=== PATIENT | male | born 1980 | race Caucasian/White ===

== ENCOUNTER 2017-08-21 04:55 | Emergency (ER) | payer OTHER ==
--- NOTE | 2017-08-21 05:33 | ED ---
Abdominal Pain HPI - General Chief Complaint: Abdominal Pain Stated Complaint: ABD PAIN Time Seen by Provider: 08/21/17 05:10 Source: patient Mode of arrival: ambulatory Limitations: no limitations - History of Present Illness Initial Comments: This patient is a 37-year-old man who presents to be evaluated for lower abdominal pain and diarrhea. He states that he was initially having symptoms 2 weeks ago, they seem to improve somewhat and then they have recurred over the past 2 days or so. He also was having some upper respiratory symptoms but states that these are not as severe area he indicates the pain is in the bilateral lower quadrants and seems to spread to the low back on the right. He had 3 bowel movements over the course of tonight. She has not noticed any blood. He is not having vomiting. He has not had a recent course of antibiotics. At my initial history and physical exam he is declining analgesics. MD Complaint: abdominal pain -: week(s) Location: LLQ, RLQ Radiation: R flank Migration to: no migration Severity: moderate Quality: aching Consistency: constant Improves With: nothing Worsens With: nothing Associated Symptoms: diarrhea - Related Data Home Medications Medication Instructions Recorded Confirmed Pioglitazone [Actos] 1 PO DAILY 08/21/17 Previous Rx's Medication Instructions Recorded Dicyclomine [Bentyl] 20 mg PO QID #15 tablet 08/21/17 Allergies Allergy/AdvReac Type Severity Reaction Status Date / Time metformin AdvReac Abdominal Verified 08/21/17 05:01 Pain Review of Systems ROS Statement: Those systems with pertinent positive or pertinent negative responses have been documented in the HPI. ROS Other: All systems not noted in ROS Statement are negative. Constitutional: Denies: fever, chills Respiratory: Denies: cough, dyspnea Cardiovascular: Denies: chest pain, palpitations Gastrointestinal: Reports: abdominal pain, diarrhea. Denies: nausea, vomiting, constipation, melena, hematochezia Genitourinary: Denies: dysuria, hematuria, testicular pain, testicular mass Musculoskeletal: Denies: back pain Skin: Denies: rash Neurological: Denies: headache, weakness, numbness Past Medical History Past Medical History: Diabetes Mellitus, Hyperlipidemia, Hypertension Additional Past Medical History / Comment(s): heart murmur History of Any Multi-Drug Resistant Organisms: None Reported Additional Past Surgical History / Comment(s): lump removed from neck Past Psychological History: No Psychological Hx Reported Smoking Status: Never smoker Past Alcohol Use History: Rare Past Drug Use History: None Reported General Exam Limitations: no limitations General appearance: alert, in no apparent distress Head exam: Present: atraumatic, normocephalic Eye exam: Present: normal appearance. Absent: scleral icterus, conjunctival injection ENT exam: Present: normal oropharynx Respiratory exam: Present: normal lung sounds bilaterally. Absent: respiratory distress, wheezes, rales, rhonchi, stridor Cardiovascular Exam: Present: regular rate, normal rhythm, normal heart sounds. Absent: systolic murmur, diastolic murmur, rubs, gallop GI/Abdominal exam: Present: soft, normal bowel sounds. Absent: distended, tenderness, guarding, rebound, rigid, pulsatile mass, hernia Extremities exam: Present: normal inspection, normal capillary refill. Absent: pedal edema, calf tenderness Back exam: Present: normal inspection. Absent: CVA tenderness (R), CVA tenderness (L) Neurological exam: Present: alert Skin exam: Present: warm, dry, intact, normal color. Absent: rash Course Vital Signs 08/21/17 08/21/17 04:58 06:01 Temperature 97 F L Pulse Rate 81 Respiratory 16 95 H Rate Blood Pressure 160/91 168/92 O2 Sat by Pulse 99 96 Oximetry Medical Decision Making - Lab Data Result diagrams: 08/21/17 05:22 08/21/17 05:22 Lab Results 08/21/17 08/21/17 08/21/17 Range/Units 05:22 05:22 05:22 WBC 9.5 (3.8-10.6) k/uL RBC 5.78 (4.30-5.90) m/uL Hgb 16.6 (13.0-17.5) gm/dL Hct 47.1 (39.0-53.0) % MCV 81.5 (80.0-100.0) fL MCH 28.7 (25.0-35.0) pg MCHC 35.2 (31.0-37.0) g/dL RDW 13.2 (11.5-15.5) % Plt Count 293 (150-450) k/uL Neutrophils % 67 % Lymphocytes % 23 % Monocytes % 6 % Eosinophils % 2 % Basophils % 1 % Neutrophils # 6.3 (1.3-7.7) k/uL Lymphocytes # 2.2 (1.0-4.8) k/uL Monocytes # 0.5 (0-1.0) k/uL Eosinophils # 0.2 (0-0.7) k/uL Basophils # 0.1 (0-0.2) k/uL Sodium 142 (137-145) mmol/L Potassium 4.4 (3.5-5.1) mmol/L Chloride 101 (98-107) mmol/L Carbon Dioxide 22 (22-30) mmol/L Anion Gap 19 mmol/L BUN 14 (9-20) mg/dL Creatinine 0.70 (0.66-1.25) mg/dL Est GFR (CKD-EPI)AfAm >90 (>60 ml/min/1.73 sqM) Est GFR (CKD-EPI)NonAf >90 (>60 ml/min/1.73 sqM) Glucose 127 H (74-99) mg/dL Calcium 10.7 H (8.4-10.2) mg/dL Total Bilirubin 0.5 (0.2-1.3) mg/dL AST 39 (17-59) U/L ALT 63 (21-72) U/L Alkaline Phosphatase 66 (38-126) U/L Total Protein 8.4 H (6.3-8.2) g/dL Albumin 5.0 (3.5-5.0) g/dL Amylase 61 (30-110) U/L Lipase 239 (23-300) U/L Urine Color Yellow Urine Appearance Clear (Clear) Urine pH 5.5 (5.0-8.0) Ur Specific [place] 1.039 H (1.001-1.035) Urine Protein 1+ H (Negative) Urine Glucose (UA) 4+ H (Negative) Urine Ketones Trace H (Negative) Urine Blood Negative (Negative) Urine Nitrite Negative (Negative) Urine Bilirubin Negative (Negative) Urine Urobilinogen <2.0 (<2.0) mg/dL Ur Leukocyte Esterase Negative (Negative) Urine RBC 1 (0-5) /hpf Urine WBC 1 (0-5) /hpf Urine Mucus Rare H (None) /hpf Disposition Clinical Impression: Diarrhea, Abdominal pain Disposition: HOME SELF-CARE Condition: Good Instructions: Abdominal Pain (ED), Acute Diarrhea (ED) Prescriptions: Dicyclomine [Bentyl] 20 mg PO QID #15 tablet Referrals: Dejan De La Fuente MD [Primary Care Provider] - 1-2 days
[2017-08-21 05:35] LABS: Basophils # (A) 0.1 k/uL (0-0.2); Basophils % (A) 1 %; Eosinophils # (A) 0.2 k/uL (0-0.7); Eosinophils % (A) 2 %; HCT 47.1 % (39.0-53.0); HGB 16.6 gm/dL (13.0-17.5); Lymphocytes # (A) 2.2 k/uL (1.0-4.8); Lymphocytes % (A) 23 %; MCH 28.7 pg (25.0-35.0); MCHC 35.2 g/dL (31.0-37.0); MCV 81.5 fL (80.0-100.0); Monocytes # (A) 0.5 k/uL (0-1.0); Monocytes % (A) 6 %; Neutrophils # (A) 6.3 k/uL (1.3-7.7); Neutrophils % (A) 67 %; Platelet Count 293 k/uL (150-450); RBC 5.78 m/uL (4.30-5.90); RDW 13.2 % (11.5-15.5); WBC 9.5 k/uL (3.8-10.6)
[2017-08-21 05:36] LABS: Appearance,Urine Clear (Clear); Bilirubin,Urine Negative (Negative); Blood,Urine Negative (Negative); Color,Urine Yellow; Glucose,Urine (UA) 4+ (Negative); Ketones,Urine Trace (Negative); Leukocyte Esterase,Urine Negative (Negative); Mucus,Urine Rare /hpf; Nitrite,Urine Negative (Negative); PH, Urine 5.5 (5.0-8.0); Protein,Urine 1+ (Negative); RBC,Urine 1 /hpf (0-5); Specific Gravity,Urine 1.039 (1.001-1.035); Urobilinogen,Urine <2.0 mg/dL (<2.0); WBC,Urine 1 /hpf (0-5)
[2017-08-21 05:44] LABS: ALT 63 U/L (21-72); AST 39 U/L (17-59); Alkaline Phosphatase 66 U/L (38-126); Amylase 61 U/L (30-110); Anion Gap 19 mmol/L; Blood Urea Nitrogen 14 mg/dL (9-20); Calcium 10.7 mg/dL (8.4-10.2); Carbon Dioxide 22 mmol/L (22-30); Chloride 101 mmol/L (98-107); Glucose 127 mg/dL (74-99); Lipase 239 U/L (23-300); Potassium 4.4 mmol/L (3.5-5.1); Sodium 142 mmol/L (137-145); Total Bilirubin 0.5 mg/dL (0.2-1.3); Total Protein 8.4 g/dL (6.3-8.2)
[2017-08-21] MEDS ORDERED: MORPHINE SULF 5MG/10ML VL IV STA (06:27)
--- NOTE | 2017-08-21 07:16 | CT ---
EXAM: CT Abdomen and Pelvis Without Intravenous Contrast CLINICAL HISTORY: ITS.REASON CT Reason: Pain TECHNIQUE: Axial computed tomography images of the abdomen and pelvis without intravenous contrast. CTDI is 9.9 mGy and DLP is 554.4 mGy-cm. This CT exam was performed using one or more of the following dose reduction techniques: automated exposure control, adjustment of the mA and/or kV according to patient size, and/or use of iterative reconstruction technique. COMPARISON: None. FINDINGS: Lower thorax: No acute findings. ABDOMEN: Liver: 12 mm cyst in the dome of liver. 3 mm hypoattenuating lesion in the liver near the falciform ligament is too small to characterize but favored to represent a cyst. Gallbladder and bile ducts: Unremarkable. No calcified stones. No ductal dilation. Pancreas: Unremarkable. No ductal dilation. Spleen: Unremarkable. No splenomegaly. Adrenals: Unremarkable. No mass. Kidneys and ureters: 1 mm nonobstructing left renal calculus. Stomach and bowel: Very mild diverticulosis without evidence of diverticulitis. No obstruction. Appendix: No findings to suggest acute appendicitis. PELVIS: Bladder: Unremarkable. No stones. Reproductive: Unremarkable as visualized. ABDOMEN and PELVIS: Intraperitoneal space: Unremarkable. No free air. No significant fluid collection. Bones/joints: 6 mm presumed bone island in the right femoral head. Soft tissues: Unremarkable. Vasculature: Unremarkable. No abdominal aortic aneurysm. Lymph nodes: Unremarkable. No enlarged lymph nodes. IMPRESSION: 1 mm nonobstructing left renal calculus. No hydronephrosis. Very mild diverticulosis without evidence of diverticulitis.
[2017-08-21 07:39] VITALS: BP 131/69; PULSE 83; RESP 18; TEMP 97.5
== END 2017-08-21 07:51 | disposition home or self-care (01) ==
LOC: EC 04:55
DX: R10.31 Right lower quadrant pain (principal); R10.32 Left lower quadrant pain; R19.7 Diarrhea, unspecified; E11.9 Type 2 diabetes mellitus without complications; Z88.8 Allergy status to other drugs, medicaments and biological substances; Z79.84 Long term (current) use of oral hypoglycemic drugs
CPT/HCPCS: 99284; 96374; 36415; 80053; 82150; 83690; 85025; 81001; 74176; J2270

== ENCOUNTER → 2017-08-31 | Outpatient (CLI) | payer OTHER ==
[~2017-08-31] MED LIST: REGADENOSON 0.4 MG/5 ML SYRINGE IV ONE
--- NOTE | 2017-08-31 11:04 | NM ---
EXAMINATION TYPE: NM stress lexiscan cardiolite DATE OF EXAM: 08/31/2017 COMPARISON: NONE HISTORY: Abnormal EKG TECHNIQUE: After the intravenous administration of 10.32 mCi Tc 99m Sestamibi - Cardiolite resting S PECT images acquired 45 minutes post injection. The patient received 0.4mg Lexiscan, 26.8 mCi Tc 99m Sestamibi - Stress images obtained [address] injection FINDINGS: Review of stress and rest SPECT images demonstrates no distinct perfusion abnormality. Gated analysi s shows normal wall motion with an estimated left ventricular ejection fraction of 66 %. IMPRESSION: No scintigraphic evidence for reversible ischemia.
--- NOTE | 2017-08-31 12:04 | EST ---
EXERCISE STRESS AGE: 37 SEX: M HT: 63" WT: 183 PROTOCOL: Lexiscan Cardiolite Stress Test HEART RATE REST: 81 BLOOD PRESSURE REST: 137/90 MAXIMUM HEART RATE ACHIEVED: 112. MAXIMUM BLOOD PRESSURE: 165/66 85% MPHR: 155 100% MPHR: 182 INDICATIONS: Difficulty in breathing/shortness of breath CLINICAL INFORMATION: Baseline heart rate 81 beats per minute. Baseline blood pressure is 137/90 mmHg. Baseline 12-lead ECG shows sinus rhythm with normal cardiac intervals, normal ST segments. Patient received Lexiscan infusion per protocol. Heart rate and blood pressure remained normal. There was no ECG evidence for ischemia. No arrhythmias were noted. Nuclear portion of the stress test will be reported separately. MMODL / IJN: [id number] /
== END | disposition home or self-care (01) ==
LOC: RADNMMAIN 07:56
PROVIDERS: ATTEND Family Medicine
DX: R94.31 Abnormal electrocardiogram [ECG] [EKG] (principal)
CPT/HCPCS: 93017; 78452; A9500; J2785

== ENCOUNTER → 2017-12-20 | Outpatient (CLI) | payer OTHER ==
--- NOTE | 2017-12-21 12:09 | MR ---
EXAMINATION TYPE: MR shoulder LT wo con DATE OF EXAM: 12/20/2017 COMPARISON: HISTORY: Left Shoulder Pian with Limited ROM X1 year TECHNIQUE: Multiplanar, multisequence imaging of the shoulder is performed without contrast. FINDINGS: Rotator Cuff: There is moderate supraspinatus tendinosis with bursal surface fiber fraying. No discre te tear is identified. Infraspinatus is unremarkable other than very mild increased signal in its ins ertional fibers from mild insertional fiber tendinopathy. Teres minor is of normal muscle volume and signal. There is a 3 x 4 mm intrasubstance tear of the distal tendon of the subscapularis. Acromioclavicular Joint: There is mild acromioclavicular arthropathy with capsular hypertrophy, small marginal osteophytes and joint space narrowing. Glenohumeral Joint: Joint spaces preserved. Labrum: The labrum appears grossly intact given limitation of non-arthrogram study. Biceps Tendon: The long head of biceps is in normal location within bicipital groove. However there i s slight attenuation of the biceps tendon in its intra-articular portion just proximal to its inserti on on the biceps anchor. Bone marrow signal: No focal abnormal marrow signal is appreciated. Other: There is a small amount of fluid seen within the subdeltoid/subacromial bursa and may relate t o bursitis in the appropriate clinical setting. IMPRESSION: 1. Moderate supraspinatus tendinosis with bursal surface fiber fraying. Additionally there is subacro mial/subdeltoid fluid that may relate to bursitis in the appropriate clinical setting. 2. 3 x 4 mm distal tendon intrasubstance tear of the subscapularis. 3. Mild insertional tendinopathy of the infraspinatus without tear. 4. Minimal biceps tendinopathy in the intra-articular portion. 5. Mild acromio clavicular arthropathy. No evidence of internal impingement.
== END | disposition home or self-care (01) ==
LOC: RADMRIMAIN 15:04
PROVIDERS: ATTEND Physician Assistant
DX: S46.912A Strain of unspecified muscle, fascia and tendon at shoulder and upper arm level, left arm, initial encounter (principal); M19.012 Primary osteoarthritis, left shoulder; M67.814 Other specified disorders of tendon, left shoulder

== ENCOUNTER → 2018-02-22 | Outpatient (CLI) | payer OTHER ==
[2018-02-22 11:44] LABS: Basophils % (A) 0 %; Eosinophils # (A) 0.1 k/uL (0-0.7); Eosinophils % (A) 3 %; HCT 45.3 % (39.0-53.0); HGB 15.8 gm/dL (13.0-17.5); Lymphocytes # (A) 1.6 k/uL (1.0-4.8); Lymphocytes % (A) 33 %; MCH 29.1 pg (25.0-35.0); MCHC 34.9 g/dL (31.0-37.0); MCV 83.3 fL (80.0-100.0); Mean Platelet Volume 6.8; Monocytes # (A) 0.4 k/uL (0-1.0); Monocytes % (A) 8 %; Neutrophils # (A) 2.6 k/uL (1.3-7.7); Neutrophils % (A) 54 %; Platelet Count 252 k/uL (150-450); RBC 5.44 m/uL (4.30-5.90); RDW 13.1 % (11.5-15.5); WBC 4.8 k/uL (3.8-10.6)
[2018-02-22 11:46] LABS: INR 1.1 (<1.2); Prothrombin Time 10.8 sec (9.0-12.0)
[2018-02-22 12:03] LABS: Potassium 4.4 mmol/L (3.5-5.1)
== END | disposition home or self-care (01) ==
LOC: LABWHC1 10:33
PROVIDERS: ATTEND Orthopaedic Surgery
DX: Z01.812 Encounter for preprocedural laboratory examination (principal); M75.42 Impingement syndrome of left shoulder
CPT/HCPCS: 80051; 85025; 85610

== ENCOUNTER → 2018-03-12 | Day surgery (SDC) | payer OTHER ==
[2018-03-07 11:31] VITALS: BMI 34.2
--- NOTE | 2018-03-11 10:25 | HP ---
HISTORY AND PHYSICAL CHIEF COMPLAINT: Left shoulder pain. 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 He is having pain with overhead use and at night. He has tried medications, therapy, and an injection with only minimal relief. He notes the pain significantly limits his function and activities. PAST MEDICAL HISTORY: Significant for type 2 diabetes and hypertension. CURRENT MEDICATIONS: 1. Diclofenac. 2. Atorvastatin. 3. Lisinopril. ALLERGIES: He notes allergies to METFORMIN. SURGICAL HISTORY: Negative. FAMILY HISTORY: Significant for liver disease and diabetes. SOCIAL HISTORY: Negative for current tobacco or alcohol use. REVIEW OF SYSTEMS: Sixteen-point review of systems otherwise reviewed and is noncontributory. PHYSICAL EXAMINATION: On examination, the patient is approximately 5 feet, 3 inches, 191 pounds of mesomorphic habitus. HEENT exam is nonfocal. Neck is supple. On examination of his left shoulder, he is tender about the anterior subacromial space. He has moderate subacromial crepitus. Active range of motion forward elevation 145 degrees, external rotation with arm to side 55 degrees, internal rotation to T12. Motor strength is 5 minus out of 5 for external rotation with the arm at the side, 5/5 for abduction. Impingement test, Neer test, and Speed test are positive. His distal neurovascular exam otherwise appears intact in the left upper extremity. MRI report for the left shoulder shows evidence of supraspinatus tendinosis with possible partial-thickness tear. There is also some biceps tendinopathy. IMPRESSION: 1. Left shoulder impingement with possible partial-thickness rotator cuff tear. 2. Uzb-[id number] diabetes. 3. Possible adhesive capsulitis left shoulder. RECOMMENDATIONS: I talked to the patient at length regarding his condition and treatment options. At this point, he remains quite symptomatic despite extensive conservative measures. After a thorough discussion, he opts to proceed with surgery. We will plan to proceed with arthroscopic evaluation with possible subacromial decompression, rotator cuff debridement, and possible manipulation under anesthesia. We will likely perform that as an outpatient procedure. MMODL / IJN: [id number] /
[~2018-03-12] MED LIST changes: +HYDROcodone/APAP 7.5-325MG 1 EACH TAB PO ONE; +HYDROmorphone (PF) 1 MG/ML ONE; +HYDROmorphone 0.5 MG/0.5 ML SYRINGE IVP PRN; +HYDROmorphone 1 MG/ML 1 ML SYRINGE IVP ONE; +INSULIN ASPART 100 UNIT/ML 1 ML 10 ML VIAL SQ ONE; +LACTATED RINGERS 1,000 ML IV ONE; +LACTATED RINGERS 1,000 ML IV SCH; +LIDOCAINE 1% INJ 10MG/ML (20 ML MDV) ONE; +MIDAZOLAM 2 MG/2 ML VIAL IV ONE; +MIDAZOLAM 2 MG/2 ML VIAL ONE; +PHENYLEPHRINE-0.9% NACL SYG 1 MG/10 ML SYRINGE ONE; +PROPOFOL 10 MG/ML 20 ML VIAL IV ONE; -REGADENOSON 0.4 MG/5 ML SYRINGE IV ONE; +ROPIVACAINE 5 MG/ML 30 ML VIAL ONE; +SUCCINYLCHOLINE CHLORIDE 100 MG/5 ML SYR IV ONE; +ceFAZolin IN SWFI 2 GM/20 ML SYRINGE IVP ONE; +fentaNYL (PF) 50 MCG/ML 2 ML AMP ONE
[2018-03-12 06:55] LABS: Glucose,Whole Blood 233 mg/dL (75-99)
[2018-03-12 07:49] LABS: Glucose,Whole Blood 206 mg/dL (75-99)
[2018-03-12 09:10] VITALS: TEMP 97.5
--- NOTE | 2018-03-12 09:18 | P.OP ---
Date of Procedure: 03/12/18 Preoperative Diagnosis: Left shoulder impingement/rotator cuff tendinitis/adhesive capsulitis Postoperative Diagnosis: Same in addition to partial thickness bursal surface rotator cuff tear Procedure(s) Performed: Left shoulder arthroscopic subacromial decompression/rotator cuff debridement/ partial synovectomy Anesthesia: FARHAN, [facility] Surgeon: Vipul Blankenship Estimated Blood Loss (ml): 10 Pathology: none sent Condition: stable Disposition: PACU Indications for Procedure: The patient is a 37-year-old male who presents with persistent left shoulder pain despite conservative measures. A discussion of the risks and benefits of operative intervention versus continued conservative measures was made with patient. He opted to proceed with surgery. Operative risks to include infection, neurovascular injury, development of blood clots, possible incomplete resolution of symptoms, possible worsening symptoms and need for subsequent procedures was discussed. Informed consent was obtained. Operative Findings: As below Description of Procedure: The patient was brought to the operating room, and after induction of general anesthesia was placed in a beachchair position. A preoperative interscalene block was placed by anesthesia for postoperative analgesia. Bony prominences were appropriately padded. I examined the left shoulder. There was mild block to passive motion and gentle manipulation was performed. The left upper extremity was prepped and draped in normal fashion. The bony outlines the acromion, distal clavicle, and coracoid process were outlined with a skin marker. The glenohumeral joint was inflated with 50 mL of saline utilizing a spinal needle from posterior approach. A posterior portal was made through a 5 mm skin incision 1 cm medial and inferior to the posterior lateral border of the acromion. A blunt trocar was used to easily into the joint. Diagnostic arthroscopy was performed. An anterior portals made just lateral to the coracoid process entering the joint above the subscapularis tendon. The subscapularis was intact. Anterior labrum was intact. There was significant synovitis involving the rotator interval debrided with motorized shaver. The biceps anchor was intact. No significant damage the biceps was noted. The posterior labrum was intact. There was no significant degenerative changes involving the humeral head or glenoid. The rotator cuff was intact on the articular surface. The arthroscope was then placed into the subacromial space. A lateral portal was made through a 5 mm skin incision 2 cm inferior to the anterior lateral border of the acromion. The soft tissue on the undersurface of the acromion was debrided with a motorized shaver and electrocautery clearly defining the anterior medial and lateral borders as well as the distal clavicle. The coracoacromial ligament was detached from the anterior acromion with electrocautery. An anterior inferior acromioplasty is performed with a motorized adria starting anterolateral, then extending this posteriorly, then extending this medially. I was able to convert to a flat acromion. This was verified from the posterior and lateral viewing portals. Significant bursitis was present in the subacromial space. This was debrided with motorized shaver. The rotator cuff was inspected. There was a partial thickness tear involving the anterior aspect the supraspinatus involving approximately 2-3 mm the tendon thickness. This was debrided back to stable base. The remaining rotator cuff was stable and intact. The arthroscope was then removed. The portals were closed with simple 3-0 nylon suture. A sterile dressing was applied in addition to a sling. The patient was awoken from general anesthesia and transferred to recovery room in good condition. Blood loss was estimated at 10 mL. No complications were incurred.
[2018-03-12 09:52] LABS: Glucose,Whole Blood 210 mg/dL (75-99)
[2018-03-12 11:28] VITALS: PULSE 89; RESP 18
[2018-03-12 11:41] VITALS: BP 128/75
--- NOTE | 2018-03-13 09:11 | P.ONQ ---
Anesthesiology Proc Note - PNB - Peripheral Nerve Block Performed Left Interscalene Single Time Out Performed: Yes Procedure Start Time: 07:14 Procedure Stop Time: 07:17 Indication: Acute Post-Operative Pain, Requested by physician Sedation Type: Sedate with meaningful contact maintained Preparation: Sterile Prep Position: Supine Needle Size: 50mm (2") Needle Gauge: 21 Technique: Ultrasound Injectate: 0.5% Ropivacaine (see comment for volume) (ropi .5% 30cc) Blood Aspirated: No Pain Paresthesia on Injection Noted: No Resistance on Injection: Normal Events: Uneventful and Well Tolerated
== END | disposition home or self-care (01) ==
LOC: OR 06:12
PROVIDERS: ATTEND Orthopaedic Surgery
DX: S46.012A Strain of muscle(s) and tendon(s) of the rotator cuff of left shoulder, initial encounter (principal); X58.XXXA Exposure to other specified factors, initial encounter; M75.02 Adhesive capsulitis of left shoulder; M75.52 Bursitis of left shoulder; I10 Essential (primary) hypertension; E78.5 Hyperlipidemia, unspecified; E11.9 Type 2 diabetes mellitus without complications; Z79.4 Long term (current) use of insulin; Z79.899 Other long term (current) drug therapy; Z88.8 Allergy status to other drugs, medicaments and biological substances
CPT/HCPCS: 64415; 29823; J2250; J2001; J3010; J1170; J2795; J2370; J0330; J2704; J0690

== ENCOUNTER 2019-01-14 07:12 | Day surgery (SDC) | payer OTHER ==
[2019-01-09 15:22] VITALS: BMI 36.3
[~2019-01-14 07:12] MED LIST changes: -HYDROcodone/APAP 7.5-325MG 1 EACH TAB PO ONE; -HYDROmorphone (PF) 1 MG/ML ONE; -HYDROmorphone 0.5 MG/0.5 ML SYRINGE IVP PRN; -HYDROmorphone 1 MG/ML 1 ML SYRINGE IVP ONE; -INSULIN ASPART 100 UNIT/ML 1 ML 10 ML VIAL SQ ONE; -LACTATED RINGERS 1,000 ML IV ONE; -LIDOCAINE 1% INJ 10MG/ML (20 ML MDV) ONE; -MIDAZOLAM 2 MG/2 ML VIAL IV ONE; -MIDAZOLAM 2 MG/2 ML VIAL ONE; -PHENYLEPHRINE-0.9% NACL SYG 1 MG/10 ML SYRINGE ONE; -PROPOFOL 10 MG/ML 20 ML VIAL IV ONE; -ROPIVACAINE 5 MG/ML 30 ML VIAL ONE; -SUCCINYLCHOLINE CHLORIDE 100 MG/5 ML SYR IV ONE; -ceFAZolin IN SWFI 2 GM/20 ML SYRINGE IVP ONE; -fentaNYL (PF) 50 MCG/ML 2 ML AMP ONE
[2019-01-14] MEDS ORDERED: LIDOCAINE 1% 20 ML VIAL (10MG/ML) FOR IV START INTRADERMA ONE (07:40)
[2019-01-14] MEDS ORDERED: MIDAZOLAM 2 MG/2 ML VIAL ONE (07:45)
[2019-01-14] MEDS ORDERED: KETAMINE 10 MG/ML 20 ML VIAL ONE (07:45)
[2019-01-14] MEDS ORDERED: PROPOFOL 10 MG/ML 20 ML VIAL IV ONE (07:45)
[2019-01-14 07:47] LABS: Glucose,Whole Blood 97 mg/dL (75-99)
[2019-01-14 07:48] VITALS: TEMP 97.8
--- NOTE | 2019-01-14 07:55 | P.GSHP ---
History of Present Illness H&P Date: 01/14/19 Chief Complaint: GERD This is a 38-year-old male second with GERD. Patient presents today for EGD. Past Medical History Past Medical History: Diabetes Mellitus, GERD/Reflux, Hyperlipidemia, Hypertension Additional Past Medical History / Comment(s): Hx heart murmur History of Any Multi-Drug Resistant Organisms: None Reported Past Surgical History: Orthopedic Surgery Additional Past Surgical History / Comment(s): Lump removed from neck. Lt shoulder Past Anesthesia/Blood Transfusion Reactions: No Reported Reaction Smoking Status: Never smoker - Past Family History Mother Family Medical History: Cancer Medications and Allergies Home Medications Medication Instructions Recorded Confirmed Type Atorvastatin [Lipitor] 80 mg PO HS 03/07/18 01/09/19 History Lisinopril [Zestril] 40 mg PO QAM 03/07/18 01/09/19 History Pioglitazone [Actos] 30 mg PO DAILY 03/07/18 01/09/19 History Canagliflozin [Invokana] 300 mg PO AC-BRKFST 01/09/19 01/09/19 History Chlorthalidone [Hygroten] 50 mg PO DAILY 01/09/19 01/09/19 History Fenofibrate Nanocrystallized 145 mg PO PC-SUPPER 01/09/19 01/09/19 History [Fenofibrate] Insulin Regular, Human [humulin R 50 unit SQ AC-SUPPER 01/09/19 01/09/19 History U-500 Kwikpen] Insulin Regular, Human [humulin R 75 unit SQ -BRKFST 01/09/19 01/09/19 History U-500 Kwikpen] Omeprazole [PriLOSEC] 20 mg PO HS 01/09/19 01/09/19 History Allergies Allergy/AdvReac Type Severity Reaction Status Date / Time metformin AdvReac Abdominal Verified 01/14/19 07:26 Pain/diarrhea Surgical - Exam Vital Signs Temp Pulse Resp BP Pulse Ox 97.8 F 89 16 139/73 98 01/14/19 07:40 01/14/19 07:40 01/14/19 07:40 01/14/19 07:40 01/14/19 07:40 - General well developed, well nourished, no distress - Eyes PERRL - ENT normal pinna - Neck no masses - Respiratory normal expansion - Cardiovascular Rhythm: regular - Abdomen Abdomen: soft, non tender Assessment and Plan Assessment: GERD. We'll perform EGD.
--- NOTE | 2019-01-14 08:08 | P.OP ---
Date of Procedure: 01/14/19 Preoperative Diagnosis: GERD Postoperative Diagnosis: Antral gastritis Sliding hiatal hernia Esophagitis Procedure(s) Performed: EGD Anesthesia: MAC Surgeon: Charlie Blount Pathology: other (Antrum, esophagus) Condition: stable Disposition: PACU Description of Procedure: Patient's placed on the endoscopy table in the lateral position. He received IV sedation. The gastroscope placed oropharynx and then placed in the esophagus and then into the stomach. Scope was then placed through the pylorus. The first and second portion of the duodenum appeared normal. Scope was then brought back the antrum and this appeared mildly inflamed. A biopsies performed. The scope was unretroflexed and remainder of the stomach appeared normal. The patient had a moderate size sliding hiatal hernia. The stomach and be seen refluxing up into the esophagus. The GE junction was at 38 7 is. The distal esophagus appeared inflamed a biopsies performed. The proximal esophagus appeared normal. Scope was withdrawn for patient.
[2019-01-14 08:18] LABS: Glucose,Whole Blood 104 mg/dL (75-99)
[2019-01-14 08:37] VITALS: BP 118/65; PULSE 76; RESP 16
== END 2019-01-14 09:03 | disposition home or self-care (01) ==
LOC: ORWHC2ENDO 07:12
PROVIDERS: ATTEND Surgery
DX: K21.0 Gastro-esophageal reflux disease with esophagitis (principal); K29.50 Unspecified chronic gastritis without bleeding; E11.9 Type 2 diabetes mellitus without complications; E78.5 Hyperlipidemia, unspecified; I10 Essential (primary) hypertension; K44.9 Diaphragmatic hernia without obstruction or gangrene; Z79.4 Long term (current) use of insulin; Z79.899 Other long term (current) drug therapy; Z88.8 Allergy status to other drugs, medicaments and biological substances
CPT/HCPCS: 88305; 43239; J2250; J2704

== ENCOUNTER → 2019-01-27 | Outpatient (CLI) | payer OTHER ==
[2019-01-27 08:55] LABS: Basophils # (A) 0.1 k/uL (0-0.2); Basophils % (A) 1 %; Eosinophils # (A) 0.2 k/uL (0-0.7); Eosinophils % (A) 3 %; HCT 40.2 % (39.0-53.0); HGB 13.7 gm/dL (13.0-17.5); Lymphocytes # (A) 1.9 k/uL (1.0-4.8); Lymphocytes % (A) 28 %; MCH 28.1 pg (25.0-35.0); MCHC 34.1 g/dL (31.0-37.0); MCV 82.3 fL (80.0-100.0); Mean Platelet Volume 7.2; Monocytes # (A) 0.5 k/uL (0-1.0); Monocytes % (A) 7 %; Neutrophils % (A) 58 %; Platelet Count 333 k/uL (150-450); RBC 4.89 m/uL (4.30-5.90); RDW 13.5 % (11.5-15.5); WBC 6.8 k/uL (3.8-10.6)
== END | disposition home or self-care (01) ==
LOC: LABPAT 08:06
PROVIDERS: ATTEND Surgery
DX: Z01.812 Encounter for preprocedural laboratory examination (principal); K21.0 Gastro-esophageal reflux disease with esophagitis
CPT/HCPCS: 36415; 85025

== ENCOUNTER → 2019-01-31 | Outpatient (CLI) | payer OTHER ==
[2019-01-31 11:12] LABS: Potassium 4.1 mmol/L (3.5-5.1)
== END | disposition home or self-care (01) ==
LOC: LABPAT 09:26
PROVIDERS: ATTEND Surgery
DX: Z01.818 Encounter for other preprocedural examination (principal); R13.10 Dysphagia, unspecified; K21.0 Gastro-esophageal reflux disease with esophagitis; Z01.812 Encounter for preprocedural laboratory examination
CPT/HCPCS: 36415; 82565; 84132; 84520; 93005

== ENCOUNTER 2019-02-05 13:13 | Day surgery (SDC) | payer OTHER ==
[~2019-02-05 13:13] MED LIST changes: +DEXAMETHASONE SOD PHOSPHATE 10 MG/ML 1 ML VIAL IV ONE; +HEPARIN SODIUM,PORCINE 5,000 UNIT/ML 1 ML VIAL SQ ONE; -LACTATED RINGERS 1,000 ML IV SCH; +ONDANSETRON 4 MG/2 ML VIAL IVP ONE; +ONDANSETRON 4 MG/2 ML VIAL IVP PRN
[2019-02-05] MEDS ORDERED: LIDOCAINE 1% 20 ML VIAL (10MG/ML) FOR IV START INTRADERMA ONE (14:07)
[2019-02-05] MEDS: LACTATED RINGERS 1,000 ML IV SCH (14:07)
--- NOTE | 2019-02-05 14:22 | P.GSHP ---
History of Present Illness H&P Date: 02/05/19 Chief Complaint: GERD This is a 38-year-old male referred from Dr. Dejan Blandon. The patient has had long-standing problems with reflux esophagitis. The patient underwent recent EGD is found have evidence of esophagitis. Patient has been well informed on the procedure of laparoscopic Ricky fundoplication. The patient is aware the risk of the conversion to the open procedure, risk of injury to the stomach, liver and spleen. The patient is also a risk of recurrent GERD and dysphagia symptoms. The patient understands there is a postoperative diet of full liquids for 2 weeks after surgery. Past Medical History Past Medical History: Diabetes Mellitus, GERD/Reflux, Hyperlipidemia, Hypertension Additional Past Medical History / Comment(s): Hx heart murmur History of Any Multi-Drug Resistant Organisms: None Reported Past Surgical History: Orthopedic Surgery Additional Past Surgical History / Comment(s): Lump removed from neck. Lt shoulder Past Anesthesia/Blood Transfusion Reactions: No Reported Reaction Smoking Status: Never smoker - Past Family History Mother Family Medical History: Cancer Medications and Allergies Home Medications Medication Instructions Recorded Confirmed Type Atorvastatin [Lipitor] 80 mg PO HS 03/07/18 02/05/19 History Lisinopril [Zestril] 40 mg PO QAM 03/07/18 02/05/19 History Pioglitazone [Actos] 30 mg PO DAILY 03/07/18 02/05/19 History Canagliflozin [Invokana] 300 mg PO AC-BRKFST 01/09/19 02/05/19 History Chlorthalidone [Hygroten] 50 mg PO DAILY 01/09/19 02/05/19 History Fenofibrate Nanocrystallized 145 mg PO AC-SUPPER 01/09/19 02/05/19 History [Fenofibrate] Insulin Regular, Human [humulin R 50 unit SQ AC-SUPPER 01/09/19 02/05/19 History U-500 Kwikpen] Insulin Regular, Human [humulin R 75 unit SQ AC-BRKFST 01/09/19 02/05/19 History U-500 Kwikpen] Omeprazole [PriLOSEC] 20 mg PO HS 01/09/19 02/05/19 History Allergies Allergy/AdvReac Type Severity Reaction Status Date / Time metformin AdvReac Abdominal Verified 01/29/19 15:33 Pain/diarrhea Surgical - Exam Vital Signs Temp Pulse Resp BP Pulse Ox 98.8 F 107 H 16 132/63 97 02/05/19 14:02 02/05/19 14:02 02/05/19 14:02 02/05/19 14:02 02/05/19 14:02 - General well developed, well nourished, no distress - Eyes PERRL - ENT normal pinna - Neck no masses - Respiratory normal expansion - Cardiovascular Rhythm: regular - Abdomen Abdomen: soft, non tender Assessment and Plan Assessment: GERD. We'll perform laparoscopic Ricky fundoplication.
[2019-02-05 14:27] LABS: Glucose,Whole Blood 104 mg/dL (75-99)
[2019-02-05] MEDS ORDERED: PHENYLEPHRINE-0.9% NACL SYG 1 MG/10 ML SYRINGE ONE (14:50)
[2019-02-05] MEDS ORDERED: MIDAZOLAM 2 MG/2 ML VIAL ONE (14:50)
[2019-02-05] MEDS ORDERED: ROCURONIUM BROMIDE 10 MG/ML 10 ML VIAL IV ONE (14:50)
[2019-02-05] MEDS ORDERED: fentaNYL (PF) 50 MCG/ML 2 ML AMP ONE (14:50)
[2019-02-05] MEDS ORDERED: GLYCOPYRROLATE 0.2 MG/ML 2 ML VIAL ONE (14:50)
[2019-02-05] MEDS ORDERED: LIDOCAINE 1% INJ 10MG/ML (20 ML MDV) ONE (14:50)
[2019-02-05] MEDS ORDERED: SUCCINYLCHOLINE CHLORIDE 100 MG/5 ML SYR IV ONE (14:50)
[2019-02-05] MEDS ORDERED: PROPOFOL 10 MG/ML 20 ML VIAL IV ONE (14:50)
[2019-02-05] MEDS ORDERED: NEOSTIGMINE 1 MG/ML 10 ML VIAL ONE (14:50)
[2019-02-05] MEDS ORDERED: BUPIVACAINE (PF) 0.25% 30 ML VIAL SQ ONE (15:27)
[2019-02-05] MEDS ORDERED: ONDANSETRON 4 MG/2 ML VIAL IVP PRN (15:48)
--- NOTE | 2019-02-05 15:48 | P.OP ---
Date of Procedure: 02/05/19 Preoperative Diagnosis: GERD Postoperative Diagnosis: GERD Procedure(s) Performed: Laparoscopic Ricky fundoplication Anesthesia: FARHAN Surgeon: Charlie Blount Estimated Blood Loss (ml): 5 Pathology: none sent Condition: stable Disposition: PACU Description of Procedure: HarThe patient was placed on the operating table in the supine position. The patient received general anesthesia. And was placed in dorsal lithotomy position. The patient was prepped and draped in the usual sterile fashion. The skin incision sites were anesthetized with 1% local Xylocaine. The skin was incised in the left periumbilical area and then using a blade less 5 mm trocar under direct visualization panel cavity was entered. After adequate insufflation the laparoscope was then placed into the peritoneal cavity. Next a 5 mm trochars placed in the right epigastric position. Another 5 millimeter trocar the right lateral position. Another 5 millimeter trocar in the left lateral position a 5 mm trocar is placed in the left epigastric position. And then the initial 5 mm trocar was exchanged for a 10 mm trocar. The left lateral lobe liver was retracted. The hernia was seen. The crural defect was then dissected using the Harmonic scissors device. A 360 crural dissection was performed the esophagus stomach was reduced back into the peritoneal Cavity. The crural defect was then closed using 2-0 Ethibond suture. Next the fundus of the stomach was mobilized using the [place] scissors device. and then a 58- [place] bougie dilator was placed oropharynx passed into the esophagus and stomach the fundal plication wrap was then performed by grasping the fundus post eriorly and bringing it around the esophagus and stomach fundoplication was then performed using 2-0 Ethibond suture. Care was taken that the fundal location rested over top of the intra-abdominal esophagus. There was no injury seen to the stomach or esophagus. The dilator was then withdrawn. The abdomen was irrigated there is no bleeding seen. The trochars were then withdrawn and then skin incision sites were closed using 3-0 Monocryl suture Steri-Strips are applied. Patient thought procedure well and sent to recovery room in stable condition.
[2019-02-05] MEDS ORDERED: LACTATED RINGERS 1,000 ML IV ONE (16:02)
[2019-02-05] MEDS: HYDROmorphone 0.5 MG/0.5 ML SYRINGE IVP PRN ×4 (16:08→16:25)
[2019-02-05] MEDS ORDERED: KETOROLAC 30 MG/ML 1 ML VIAL IVP ONE (16:22)
[2019-02-05 16:52] LABS: Glucose,Whole Blood 144 mg/dL (75-99)
[2019-02-05 17:44] VITALS: BMI 36.4
[2019-02-05] MEDS: HYDROmorphone 1 MG/ML 1 ML SYRINGE IVP PRN (18:43)
[2019-02-05 22:46] LABS: Glucose,Whole Blood 177 mg/dL (75-99)
[2019-02-06] MEDS: D5-0.45% NACL WITH KCL 20MEQ/L 1,000 ML IV SCH ×2 (00:11→07:46)
[2019-02-06] MEDS: HYDROmorphone 1 MG/ML 1 ML SYRINGE IVP PRN (00:16)
[2019-02-06] MEDS: LACTATED RINGERS 1,000 ML IV SCH (04:57)
[2019-02-06 07:08] LABS: Glucose,Whole Blood 139 mg/dL (75-99)
[2019-02-06] MEDS ORDERED: HYDROcodone/APAP 5-325MG 1 EACH TAB PO PRN (07:37)
[2019-02-06 08:20] VITALS: BP 104/61; PULSE 96; RESP 16; TEMP 98.7
--- NOTE | 2019-02-06 08:54 | FL ---
SINGLE CONTRAST ESOPHAGRAM: CLINICAL HISTORY: 38-year-old male rule out leak/obstruction status post Ricky fundoplication TECHNIQUE: Single contrast exam performed with 50 ml Isovue-370 contrast. Total fluoroscopy time: 43 seconds. Total images: 23. FINDINGS: The patient swallowed oral contrast without difficulty or delay. Esophageal peristalsis and motility are within normal limits. Post surgical changes relating to Ricky fundoplication at the GE junctio n. There is good flow of contrast into the stomach without evidence of contrast extravasation to sugg est leak. Small amount of post surgical free air below the right hemidiaphragm. IMPRESSION: No evidence of leak or significant obstruction status post Ricky fundoplication. Small amount of pos tsurgical free air on the right.
[2019-02-06] MEDS ORDERED: ENOXAPARIN 40 MG/0.4 ML SYRINGE SQ SCH (09:00)
--- NOTE | 2019-02-06 10:57 | P.DS ---
Providers Expected date of discharge: 02/06/19 Attending physician: Charlie Blount Consults: 02/05/19 15:48 Consult Physician Routine Consulting Provider: Dejan De La Fuente Consult Reason/Comments: Medical management Do you want consulting provider notified?: Yes Primary care physician: Dejan De La Fuente [facility] Course: 38-year-old male who underwent laparoscopic Ricky fundoplication with Dr. Marianna leigh on 02/05/2019. Patient is doing well postoperatively without any immediate complications. Esophagram completed postoperatively negative for leak or obstruction. He is tolerating clear liquid diet. Pain controlled on oral medications. Vital signs have been stable. He is stable for discharge home today. Please see EMR for further hospital course details. Discharge diagnosis 1. GERD, status post laparoscopic Ricky fundoplication Nurse practitioner note has been reviewed by physician. Signing provider agrees with the documented findings, assessment, and plan of care. Patient Condition at Discharge: Stable Plan - Discharge Summary Discharge Rx Participant: Yes New Discharge Prescriptions: New Hydrocodone/Acetaminophen [Etlan 5-325] 1 tab PO Q6HR PRN 3 Days #12 tab PRN Reason: Pain Continue Lisinopril [Zestril] 40 mg PO QAM Pioglitazone [Actos] 30 mg PO DAILY Atorvastatin [Lipitor] 80 mg PO HS Insulin Regular, Human [humulin R U-500 Kwikpen] 75 unit SQ AC-BRKFST Chlorthalidone [Hygroten] 50 mg PO DAILY Fenofibrate Nanocrystallized [Fenofibrate] 145 mg PO AC-SUPPER Omeprazole [PriLOSEC] 20 mg PO HS Canagliflozin [Invokana] 300 mg PO AC-BRKFST Insulin Regular, Human [humulin R U-500 Kwikpen] 50 unit SQ AC-SUPPER Discharge Medication List Atorvastatin [Lipitor] 80 mg PO HS 03/07/18 [History] Lisinopril [Zestril] 40 mg PO QAM 03/07/18 [History] Pioglitazone [Actos] 30 mg PO DAILY 03/07/18 [History] Canagliflozin [Invokana] 300 mg PO AC-BRKFST 01/09/19 [History] Chlorthalidone [Hygroten] 50 mg PO DAILY 01/09/19 [History] Fenofibrate Nanocrystallized [Fenofibrate] 145 mg PO AC-SUPPER 01/09/19 [History] Insulin Regular, Human [humulin R U-500 Kwikpen] 50 unit SQ AC-SUPPER 01/09/19 [History] Insulin Regular, Human [humulin R U-500 Kwikpen] 75 unit SQ AC-BRKFST 01/09/19 [History] Omeprazole [PriLOSEC] 20 mg PO HS 01/09/19 [History] Hydrocodone/Acetaminophen [Etlan 5-325] 1 tab PO Q6HR PRN 3 Days #12 tab 02/06/19 [Rx] Follow up Appointment(s)/Referral(s): Dejan De La Fuente MD [Primary Care Provider] - 1 Week Charlie Blount MD [STAFF PHYSICIAN] - 2 Weeks Activity/Diet/Wound Care/Special Instructions: No driving while taking Etlan No lifting over 10 pounds You may shower. No soaking or tub baths Very light activity until you are reevaluated at your follow up appointment with your surgeon Full liquid diet for 2 weeks No straws or carbonated beverages
[2019-02-06 12:04] LABS: Glucose,Whole Blood 168 mg/dL (75-99)
--- NOTE | 2019-02-06 15:38 | P.CONS ---
History of Present Illness - Reason for Consult Consult date: 02/06/19 medical management and diabetes,hypertension Requesting physician: Charlie Blount - Chief Complaint gastroesophageal reflux disease - History of Present Illness this is a 38-year-old gentleman with history of diabetes, hypertension, obesity,gastroesophageal reflux disease, esophagitis status post laparoscopic Finn fundoplication. Tolerated procedure well.esophagram reported negative for leak or obstruction.tolerating postoperative for liquid diet with blood sugars controlled.vital signs stable. Denies chest pain, palpitations or shortness of breath. Denies lightheadedness dizziness or focal deficits.pain controlled. Ambulating, tolerating exertion well. Review of Systems ROS Statement: Those systems with pertinent positive or pertinent negative responses have been documented in the HPI. ROS Other: All systems not noted in ROS Statement are negative. Past Medical History Past Medical History: Diabetes Mellitus, GERD/Reflux, Hyperlipidemia, Hypertension Additional Past Medical History / Comment(s): Hx heart murmur History of Any Multi-Drug Resistant Organisms: None Reported Past Surgical History: Orthopedic Surgery Additional Past Surgical History / Comment(s): Lump removed from neck. Lt shoulder Past Anesthesia/Blood Transfusion Reactions: No Reported Reaction Past Psychological History: No Psychological Hx Reported Smoking Status: Never smoker Past Alcohol Use History: Rare Past Drug Use History: None Reported - Past Family History Mother Family Medical History: Cancer Father Family Medical History: No Reported History Medications and Allergies Home Medications Medication Instructions Recorded Confirmed Type Atorvastatin [Lipitor] 80 mg PO HS 03/07/18 02/05/19 History Lisinopril [Zestril] 40 mg PO QAM 03/07/18 02/05/19 History Pioglitazone [Actos] 30 mg PO DAILY 03/07/18 02/05/19 History Canagliflozin [Invokana] 300 mg PO AC-BRKFST 01/09/19 02/05/19 History Chlorthalidone [Hygroten] 50 mg PO DAILY 01/09/19 02/05/19 History Fenofibrate Nanocrystallized 145 mg PO AC-SUPPER 01/09/19 02/05/19 History [Fenofibrate] Insulin Regular, Human [humulin R 50 unit SQ AC-SUPPER 01/09/19 02/05/19 History U-500 Kwikpen] Insulin Regular, Human [humulin R 75 unit SQ AC-BRKFST 01/09/19 02/05/19 History U-500 Kwikpen] Omeprazole [PriLOSEC] 20 mg PO HS 01/09/19 02/05/19 History Hydrocodone/Acetaminophen [[place] 1 tab PO Q6HR PRN 3 Days #12 tab 02/06/19 Rx 5-325] Allergies Allergy/AdvReac Type Severity Reaction Status Date / Time metformin AdvReac Abdominal Verified 01/29/19 15:33 Pain/diarrhea Physical Exam Vitals: Vital Signs Temp Pulse Pulse Resp BP Pulse Ox 02/06/19 07:22 98.7 F 96 16 104/61 96 02/06/19 02:00 98.8 F 91 18 95/58 93 L 02/05/19 22:45 98.2 F 96 14 116/68 95 02/05/19 21:15 94 106/63 93 L 02/05/19 20:00 115 H 02/05/19 19:27 115 H 77/40 92 L 02/05/19 19:11 101 H 107/64 86 L 02/05/19 18:58 87 124/120 89 L 02/05/19 18:41 113 H 122/59 92 L 02/05/19 18:26 105 H 110/59 02/05/19 18:10 95 105/67 02/05/19 17:45 76 18 02/05/19 17:40 94 108/64 02/05/19 17:25 106 H 112/62 02/05/19 17:10 98.3 F 83 16 93/59 93 L 02/05/19 16:46 76 18 125/58 97 02/05/19 16:32 72 18 120/57 99 02/05/19 16:16 72 18 131/63 99 02/05/19 16:05 97.4 F L 93 20 136/65 99 02/05/19 14:02 98.8 F 107 H 16 132/63 97 Intake and Output 02/05/19 02/06/19 02/06/19 22:59 06:59 14:59 Intake Total 1500 1000 Output Total 5 Balance 1495 1000 Intake: IV 1250 Intake, IV Titration 200 1000 Amount Lactated Ringers 1,000 ml 200 1000 @ 20 mls/hr IV .Q24H [facility] Rx#:[id number] Oral 50 Output: Estimated Blood Loss 5 Other: Voiding Method Toilet # Voids 1 PHYSICAL EXAM: VITAL SIGNS: [as above] GENERAL: sitting up in bed, no acute distress HEENT: Conjunctivae normal. eyes normal. oral mucosa moist NECK: No JVD. No thyroid enlargement. No LNs CARDIOVASCULAR: S1, S2 regular.. No murmur RESPIRATION: Breath sounds diminished in the bases. No rhonchi or crackles. No bronchial breathing. ABDOMEN: Soft, status post surgery.No guarding. no masses palpable. Bowel sounds heard. LEGS: No edema. no swelling PSYCHIATRY: Alert and oriented X3, mood and affect normal. NERVOUS SYSTEM: Cranial N 2-12 grossly normal. Moves all 4 limbs. No focal deficits. Strength and sensation grossly intact.. Skin: no lesions, no rash Lymphatic system. No LN neck axilla or groin. Results Labs: Abnormal Lab Results - Last 24 Hours (Table) 02/05/19 02/05/19 02/05/19 Range/Units 14:04 16:48 22:42 POC Glucose (mg/dL) 104 H 144 H 177 H (75-99) mg/dL 02/06/19 Range/Units 07:07 POC Glucose (mg/dL) 139 H (75-99) mg/dL Assessment and Plan Assessment: gastroesophageal reflux disease, status post laparoscopic Finn fundoplication -Diabetes mellitus -Hypertension Plan: Continue current medication regime ,monitoring and symptomatic treatment. patient being discharged home this morning.Discussed with patient, diabetic med regimen for home;patient to do Accu-Cheks twice a day and to call PCPs office if blood sugars begin to run on the lower side. Follow-up PCP in 1 week. Further recommendations to follow. The impression and plan of care has been dictated as directed. : I performed a history and examination of this patient, discussed the same with the dictator. I agree with the dictator's note ,documented as a scribe. Any additional findings or plans will be noted. Time taken: 35 minutes
== END 2019-02-06 13:57 | disposition home or self-care (01) ==
LOC: OR 13:13 → 4SSUR 16:35 → OR 02-06 13:57
PROVIDERS: ATTEND Surgery
DX: K21.0 Gastro-esophageal reflux disease with esophagitis (principal); K46.9 Unspecified abdominal hernia without obstruction or gangrene; E78.5 Hyperlipidemia, unspecified; I10 Essential (primary) hypertension; E11.9 Type 2 diabetes mellitus without complications; E66.9 Obesity, unspecified; Z68.36 Body mass index [BMI] 36.0-36.9, adult; Z79.4 Long term (current) use of insulin; Z79.899 Other long term (current) drug therapy; Z88.8 Allergy status to other drugs, medicaments and biological substances; Z98.890 Other specified postprocedural states; Z86.79 Personal history of other diseases of the circulatory system; Z80.9 Family history of malignant neoplasm, unspecified
CPT/HCPCS: 86900; 86901; 86850; 74210; 43280; J2250; J1644; J1100; J2710; J0690; J2405; J2001; J1650; J3010; J1885; J1170 ×3; J2370; J0330; J2704; Q9967

== ENCOUNTER → 2019-10-10 | Outpatient (CLI) | payer OTHER ==
--- NOTE | 2019-10-10 14:05 | NM ---
EXAMINATION TYPE: NM hepatobiliary w CCK DATE OF EXAM: 10/10/2019 COMPARISON: CT 08/21/2017 HISTORY: Biliary dyskinesia TECHNIQUE: After the intravenous administration of 5.2 mCi Tc 99m Mebrofenin hepatobiliary scintigrap hy is performed. Immediate images post injection. FINDINGS: There is satisfactory initial accumulation of tracer by the liver. The gallbladder is visualized wit hin 10 minutes. The small bowel activity is noted within 8 minutes. At one hour CCK was administere d, patient was injected with 1.9 mcg of Kinevac, and gallbladder ejection fraction is calculated at 3 6 %, at the lower end of the normal range. Therefore there is no scintigraphic evidence of cystic or common bile duct obstruction to suggest acute cholecystitis. IMPRESSION: Exam is within normal limits, gallbladder ejection fraction 36%.
== END | disposition home or self-care (01) ==
LOC: RADNMMAIN 07:06
PROVIDERS: ATTEND Surgery
DX: K82.8 Other specified diseases of gallbladder (principal)
CPT/HCPCS: 78227; A9537; J2805

== ENCOUNTER → 2019-10-24 | Outpatient (CLI) | payer OTHER | END | disposition home or self-care (01) | LOC: LABWHC1 12:48 | PROVIDERS: ATTEND Surgery | DX: Z11.59 Encounter for screening for other viral diseases (principal) ==

== ENCOUNTER 2019-10-28 07:24 | Day surgery (SDC) | payer OTHER ==
[2019-10-27 09:33] VITALS: BMI 36.3
[~2019-10-28 07:24] MED LIST changes: +LACTATED RINGERS 1,000 ML IV SCH; +LIDOCAINE 1% (10MG/ML) FOR IV START INTRADERMA PRN; +MIDAZOLAM 2 MG/2 ML VIAL IV PRN; -ONDANSETRON 4 MG/2 ML VIAL IVP PRN; +fentaNYL (PF) 50 MCG/ML 2 ML AMP IVP PRN
[2019-10-28 07:49] LABS: Glucose,Whole Blood 174 mg/dL (75-99)
[2019-10-28] MEDS ORDERED: SCOPOLAMINE 1.5MG/72HR PATCH TRANSDERM ONE (08:00)
--- NOTE | 2019-10-28 08:47 | P.GSHP ---
History of Present Illness H&P Date: 10/28/19 Chief Complaint: Right upper quadrant pain This a 39-year-old male with right quadrant pain. His recent HIDA scan shows a decreased ejection fraction. Patient's pain when eating greasy and fried foods. He presents today for laparoscopic cholecystectomy Past Medical History Past Medical History: Diabetes Mellitus, GERD/Reflux, Hyperlipidemia, Hypertension Additional Past Medical History / Comment(s): Hx heart murmur History of Any Multi-Drug Resistant Organisms: None Reported Past Surgical History: Hernia Repair, Orthopedic Surgery Additional Past Surgical History / Comment(s): Lump removed from neck. Lt shoulder sx, hiatal hernia sx Past Anesthesia/Blood Transfusion Reactions: No Reported Reaction Smoking Status: Never smoker - Past Family History Mother Family Medical History: Cancer Father Family Medical History: No Reported History Medications and Allergies Home Medications Medication Instructions Recorded Confirmed Type Atorvastatin [Lipitor] 80 mg PO HS 03/07/18 10/27/19 History Lisinopril [Zestril] 40 mg PO QAM 03/07/18 10/27/19 History Pioglitazone [Actos] 30 mg PO DAILY 03/07/18 10/27/19 History Canagliflozin [Invokana] 300 mg PO AC-BRKFST 01/09/19 10/27/19 History Chlorthalidone [Hygroten] 50 mg PO DAILY 01/09/19 10/27/19 History Fenofibrate Nanocrystallized 145 mg PO AC-SUPPER 01/09/19 10/27/19 History [Fenofibrate] Insulin Regular, Human [humulin R 25 unit SQ AC-SUPPER 01/09/19 10/27/19 History U-500 Kwikpen] Insulin Regular, Human [humulin R 50 unit SQ AC-BRKFST 01/09/19 10/27/19 History U-500 Kwikpen] Allergies Allergy/AdvReac Type Severity Reaction Status Date / Time metformin AdvReac Abdominal Verified 10/28/19 07:39 Pain/diarrhea Surgical - Exam Vital Signs Temp Pulse Resp BP Pulse Ox 97 F L 84 14 132/76 100 10/28/19 07:40 10/28/19 07:40 10/28/19 07:40 10/28/19 07:40 10/28/19 07:40 - General well developed, well nourished, no distress - Eyes PERRL - ENT normal pinna - Neck no masses - Respiratory normal expansion - Cardiovascular Rhythm: regular - Abdomen Abdomen: soft, non tender Results - Labs Abnormal Lab Results - Last 24 Hours (Table) 10/28/19 Range/Units 07:48 POC Glucose (mg/dL) 174 H (75-99) mg/dL Assessment and Plan Assessment: Chronic cholecystitis. We'll perform laparoscopic cholecystectomy
[2019-10-28] MEDS ORDERED: MIDAZOLAM 2 MG/2 ML VIAL ONE (09:08)
[2019-10-28] MEDS ORDERED: fentaNYL (PF) 50 MCG/ML 2 ML AMP ONE (09:08)
[2019-10-28] MEDS ORDERED: ROCURONIUM BROMIDE 10 MG/ML 5 ML VIAL IV ONE (09:08)
[2019-10-28] MEDS ORDERED: LIDOCAINE 1% INJ 10MG/ML (20 ML MDV) ONE (09:08)
[2019-10-28] MEDS ORDERED: SUCCINYLCHOLINE CHLORIDE 100 MG/5 ML SYR IV ONE (09:08)
[2019-10-28] MEDS ORDERED: KETOROLAC 30 MG/ML 1 ML VIAL ONE (09:08)
[2019-10-28] MEDS ORDERED: PROPOFOL 10 MG/ML 20 ML VIAL IV ONE (09:08)
[2019-10-28] MEDS ORDERED: LACTATED RINGERS 1,000 ML IV ONE (09:43)
[2019-10-28] MEDS ORDERED: BUPIVACAIN-EPI 0.25%-1:200,000 30 ML VIAL SQ ONE (09:43)
--- NOTE | 2019-10-28 10:09 | P.OP ---
Date of Procedure: 10/28/19 Preoperative Diagnosis: Cholecystitis Postoperative Diagnosis: Cholecystitis Procedure(s) Performed: Laparoscopic cholecystectomy Anesthesia: FARHAN Surgeon: Charlie Blount Estimated Blood Loss (ml): 5 Pathology: other (Gallbladder) Condition: stable Disposition: PACU Description of Procedure: The patient was placed on the operating table. The patient received a general endotracheal tube anesthesia. The patients abdomen was prepped and draped in the usual sterile fashion. Through an infraumbilical stab incision, the fascia of the anterior abdominal wall was grasped with a pair of Kochers and then the Veress needle was placed in the peritoneal cavity. Position of the Veress needle was confirmed with positive drop test. The abdomen was then insufflated. After adequate insufflation, the 10 mm trocar was placed in the peritoneal cavity. Following this the laparoscope was placed in the peritoneal cavity. The patient was placed in the head-up, right side up position and then a 5 mm trocar was placed in the right lateral and right subcostal position under direct visualization. A 8 mm trocar was placed in the epigastric position. The gallbladder was grasped in the fundus and infundibulum. Traction on the gallbladder was placed in the lateral and the cephalad positions. The triangle of [place] was visualized.. The cystic duct was bluntly dissected until the union of the cystic duct and common bile duct was seen. A critical view of safety was achieved. The cystic duct was then divided and sealed with the Harmonic scissors. A PDS Endoloop was then placed throughout the cystic duct stump. The cystic artery divided and sealed with the Harmonic scissors. The gallbladder was then removed from the liver bed using Harmonic scissors. The gallbladder was then extracted through the epigastric port site. Operative field was checked for any bleeding spots and Harmonic scissors was used to coagulate the liver bed. The abdomen was irrigated. The trocars were removed. The skin was closed using interrupted 3-0 Vicryl suture. Dermabond dressing were applied. The patient tolerated the procedure well.
[2019-10-28 10:18] VITALS: TEMP 97
[2019-10-28 10:29] LABS: Glucose,Whole Blood 202 mg/dL (75-99)
[2019-10-28] MEDS: HYDROmorphone 0.5 MG/0.5 ML SYRINGE IVP PRN ×4 (10:36→10:52)
[2019-10-28] MEDS ORDERED: HYDROcodone/APAP 5-325MG 1 EACH TAB PO ONE (11:21)
[2019-10-28 11:42] VITALS: BP 108/58; PULSE 99; RESP 16
== END 2019-10-28 12:19 | disposition home or self-care (01) ==
LOC: OR 07:24
PROVIDERS: ATTEND Surgery
DX: K81.1 Chronic cholecystitis (principal); K21.9 Gastro-esophageal reflux disease without esophagitis; E11.9 Type 2 diabetes mellitus without complications; E78.5 Hyperlipidemia, unspecified; I10 Essential (primary) hypertension; R01.1 Cardiac murmur, unspecified; Z98.890 Other specified postprocedural states; Z79.4 Long term (current) use of insulin; Z79.899 Other long term (current) drug therapy; Z88.8 Allergy status to other drugs, medicaments and biological substances
CPT/HCPCS: 88304; 47562; J2250; J1644; J1100; J0690; J2405; J2001; J3010; J1885; J0330; J2704; J1170

== ENCOUNTER 2019-11-21 00:15 | Emergency (ER) | payer OTHER ==
[2019-11-21 00:21] VITALS: TEMP 98.1
--- NOTE | 2019-11-21 01:21 | XR ---
EXAMINATION TYPE: XR foot complete LT DATE OF EXAM: 11/21/2019 COMPARISON: NONE HISTORY: Trauma. Pain. TECHNIQUE: 3 views FINDINGS: Metatarsals appear intact. I see no fracture nor dislocation. There is mild plantar and Ach illes calcaneal spurring. Joint spaces are fairly normal. IMPRESSION: Calcaneal spurring. No fracture seen.
--- NOTE | 2019-11-21 01:52 | ED ---
Lower Extremity Injury HPI - General Chief Complaint: Extremity Injury, Lower Stated Complaint: foot pain Time Seen by Provider: 11/21/19 00:43 Source: patient Mode of arrival: wheelchair Limitations: no limitations - History of Present Illness Initial Comments: Patient is a 39-year-old male presenting to emergency Department with complaints of pain in his left foot. Patient states he was playing softball today and took a line drive into the top of his foot. This was approximately 6 hours prior to arrival. He states the pain has been getting progressively worse so he wanted to be seen. He denies any previous injuries to his left foot or ankle. He has no further complaints at this time. - Related Data Home Medications Medication Instructions Recorded Confirmed Atorvastatin [Lipitor] 80 mg PO HS 03/07/18 10/27/19 Lisinopril [Zestril] 40 mg PO QAM 03/07/18 10/27/19 Pioglitazone [Actos] 30 mg PO DAILY 03/07/18 10/27/19 Canagliflozin [Invokana] 300 mg PO AC-BRKFST 01/09/19 10/27/19 Chlorthalidone [Hygroten] 50 mg PO DAILY 01/09/19 10/27/19 Fenofibrate Nanocrystallized 145 mg PO AC-SUPPER 01/09/19 10/27/19 [Fenofibrate] Insulin Regular, Human [humulin R 25 unit SQ AC-SUPPER 01/09/19 10/27/19 U-500 Kwikpen] Insulin Regular, Human [humulin R 50 unit SQ AC-BRKFST 01/09/19 10/27/19 U-500 Kwikpen] Previous Rx's Medication Instructions Recorded Docusate [Colace] 100 mg PO BID #20 capsule 10/28/19 HYDROcodone/APAP 5-325MG [[place] 1 tab PO Q6HR PRN #10 tab 10/28/19 5-325] Allergies Allergy/AdvReac Type Severity Reaction Status Date / Time metformin AdvReac Abdominal Verified 11/21/19 00:22 Pain/diarrhea Review of Systems ROS Statement: Those systems with pertinent positive or pertinent negative responses have been documented in the HPI. ROS Other: All systems not noted in ROS Statement are negative. Past Medical History Past Medical History: Diabetes Mellitus, GERD/Reflux, Hyperlipidemia, Hypertension Additional Past Medical History / Comment(s): Hx heart murmur History of Any Multi-Drug Resistant Organisms: None Reported Past Surgical History: Cholecystectomy, Orthopedic Surgery Additional Past Surgical History / Comment(s): Lump removed from neck. Lt shoulder Past Anesthesia/Blood Transfusion Reactions: No Reported Reaction Past Psychological History: No Psychological Hx Reported Smoking Status: Never smoker Past Alcohol Use History: Rare Past Drug Use History: None Reported - Past Family History Mother Family Medical History: Cancer Father Family Medical History: No Reported History General Exam - General Exam Comments Initial Comments: GENERAL: Well-appearing, well-nourished and in no acute distress. HEAD: Atraumatic, normocephalic. EYES: Pupils equal round and reactive to light, extraocular movements intact, sclera anicteric, conjunctiva are normal. ENT: Nares patent, oropharynx clear without exudates. Moist mucous membranes. NECK: Normal range of motion, supple without lymphadenopathy or JVD. LUNGS: Breath sounds clear to auscultation bilaterally and equal. No wheezes rales or rhonchi. HEART: Regular rate and rhythm without murmurs, rubs or gallops. ABDOMEN: Soft, nontender, normoactive bowel sounds. No guarding, no rebound. No masses appreciated. : Deferred EXTREMITIES: Patient has pain with palpation of the dorsal aspect of the left foot, there is some mild swelling present, no significant erythema. He is neurovascular intact. No pain of the left ankle. He has normal range of motion of his toes, foot, ankle. No clubbing or cyanosis. NEUROLOGICAL: Normal speech, normal gait. PSYCH: Normal mood, normal affect. SKIN: Warm, Dry, normal turgor, no rashes or lesions noted. Limitations: no limitations Course Vital Signs 11/21/19 11/21/19 00:17 02:13 Temperature 98.1 F Pulse Rate 89 80 Respiratory 18 17 Rate Blood Pressure 137/84 131/73 O2 Sat by Pulse 98 99 Oximetry Medical Decision Making - Medical Decision Making Patient is a 39-year-old male here for left foot pain after a softball hit the approximate 6 hours ago. X-rays reveal no acute fractures/dislocations. I discussed with patient this is most likely a foot contusion. I did recommend following up with orthopedics if symptoms do not improve in 1-2 weeks. He may use ice to the area as well as ibuprofen for pain. I did recommend a splint to the foot for support however patient declined at this time. He is stable for discharge and is in agreement with this plan of care. Disposition Clinical Impression: Contusion of left foot Disposition: HOME SELF-CARE Condition: Stable Instructions (If sedation given, give patient instructions): Foot Contusion (ED) Additional Instructions: Please return to the Emergency Department if symptoms worsen or any other concerns. Follow-up with orthopedics if symptoms do not improve in 1-2 weeks. May use ice to the area as well as ibuprofen for pain. Is patient prescribed a controlled substance at d/c from ED?: No Referrals: Dejan De La Fuente MD [Primary Care Provider] - 1-2 days Adilson Foley DO [Medical Doctor] - 1-2 days
[2019-11-21 02:14] VITALS: BP 131/73; PULSE 80; RESP 17
== END 2019-11-21 02:14 | disposition home or self-care (01) ==
LOC: EC 00:15
DX: S90.32XA Contusion of left foot, initial encounter (principal); E78.5 Hyperlipidemia, unspecified; I10 Essential (primary) hypertension; E11.9 Type 2 diabetes mellitus without complications; Z79.899 Other long term (current) drug therapy; Z79.84 Long term (current) use of oral hypoglycemic drugs; Z79.4 Long term (current) use of insulin; Z88.8 Allergy status to other drugs, medicaments and biological substances; W21.07XA Struck by softball, initial encounter; Y93.64 Activity, baseball; Y92.320 Baseball field as the place of occurrence of the external cause
CPT/HCPCS: 99283

== ENCOUNTER 2020-03-01 02:15 | Emergency (ER) | payer OTHER ==
[2020-03-01 02:22] VITALS: BP 135/86; PULSE 81; RESP 18; TEMP 98.2
--- NOTE | 2020-03-01 02:43 | XR ---
EXAMINATION TYPE: XR ankle complete LT DATE OF EXAM: 03/01/2020 COMPARISON: NONE HISTORY: Pain TECHNIQUE: 3 views FINDINGS: There is an Achilles calcaneal spur. Ankle mortise is anatomic. I see no fracture nor dislo cation. IMPRESSION: Calcaneal spurring. No fracture seen.
--- NOTE | 2020-03-01 03:01 | ED ---
Lower Extremity Injury HPI - General Chief Complaint: Extremity Injury, Lower Stated Complaint: Lt Ankle Injury/Pain Time Seen by Provider: 03/01/20 02:30 Source: patient Mode of arrival: ambulatory Limitations: no limitations - History of Present Illness Initial Comments: Toby is a pleasant 39-year-old gentleman who reports that yesterday afternoon he was playing baseball, he states he was running to second base when he landed on the base he heard a pop in his foot. He doesn't recall inverting or twisting his foot. He reports he had some pain afterwards. He he iced it went to bed but when he woke up this morning his ankles more swollen and painful to walk on his concerned he can go to work so he came to the ER for evaluation. Denies other injuries. Denies history of injury or surgery to this ankle - Related Data Home Medications Medication Instructions Recorded Confirmed Atorvastatin [Lipitor] 80 mg PO HS 03/07/18 10/27/19 Pioglitazone [Actos] 30 mg PO DAILY 03/07/18 10/27/19 lisinopriL [Zestril] 40 mg PO QAM 03/07/18 10/27/19 Canagliflozin [Invokana] 300 mg PO AC-BRKFST 01/09/19 10/27/19 Chlorthalidone [Hygroten] 50 mg PO DAILY 01/09/19 10/27/19 Fenofibrate Nanocrystallized 145 mg PO AC-SUPPER 01/09/19 10/27/19 [Fenofibrate] Insulin Regular, Human [humulin R 25 unit SQ AC-SUPPER 01/09/19 10/27/19 U-500 Kwikpen] Insulin Regular, Human [humulin R 50 unit SQ AC-BRKFST 01/09/19 10/27/19 U-500 Kwikpen] Previous Rx's Medication Instructions Recorded Docusate [Colace] 100 mg PO BID #20 capsule 10/28/19 HYDROcodone/APAP 5-325MG [[place] 1 tab PO Q6HR PRN #10 tab 10/28/19 5-325] Allergies Allergy/AdvReac Type Severity Reaction Status Date / Time metformin AdvReac Abdominal Verified 03/01/20 02:22 Pain/diarrhea Review of Systems ROS Statement: Those systems with pertinent positive or pertinent negative responses have been documented in the HPI. ROS Other: All systems not noted in ROS Statement are negative. Past Medical History Past Medical History: Diabetes Mellitus, GERD/Reflux, Hyperlipidemia, Hypertension Additional Past Medical History / Comment(s): Hx heart murmur History of Any Multi-Drug Resistant Organisms: None Reported Past Surgical History: Cholecystectomy, Hernia Repair, Orthopedic Surgery Additional Past Surgical History / Comment(s): Lump removed from neck. Lt shoulder, hiatal hernia surgery 2019 Past Anesthesia/Blood Transfusion Reactions: No Reported Reaction Past Psychological History: No Psychological Hx Reported Smoking Status: Never smoker Past Alcohol Use History: Rare Past Drug Use History: None Reported - Past Family History Mother Family Medical History: Cancer Father Family Medical History: No Reported History General Exam - General Exam Comments Initial Comments: Physical Exam GENERAL: Patient is well-developed and well-nourished. Patient is nontoxic and well-hydrated and is in no distress. HENT: Normocephalic, Atraumatic. EYES: PERRL, EOMI PULMONARY: Unlabored respirations. CARDIOVASCULAR: RRR Warm and well perfused extremities ABDOMEN: Non-distended SKIN: No rashes or bruising : Deferred NEUROLOGIC: Alert and oriented Normal speech MUSCULOSKELETAL: Mild soft tissue swelling on the medial surface of the left ankle. Normal plantar and dorsiflexion normal pulses. PSYCHIATRIC: No SI/HI Limitations: no limitations Course Vital Signs 03/01/20 02:19 Temperature 98.2 F Pulse Rate 81 Respiratory 18 Rate Blood Pressure 135/86 O2 Sat by Pulse 100 Oximetry Medical Decision Making - Medical Decision Making Patient seen and evaluated history is obtained from patient Patient with left ankle pain after hearing a snapping when stepping on a basis. X-rays were ordered and results with no acute findings. Ankle was wrapped with an Emmanuel wrap patient was advised to treat with rest, ice, compression and elevation. Patient was given a work note for 2 days off work. Advised if he has persistent pain he needs follow-up with orthopedics for possible MRI patient's breast understanding of this patient discharged home in stable condition. Disposition Clinical Impression: Ankle sprain Disposition: HOME SELF-CARE Condition: Stable Instructions (If sedation given, give patient instructions): Ankle Sprain (ED) Is patient prescribed a controlled substance at d/c from ED?: No Referrals: Dejan De La Fuente MD [Primary Care Provider] - 1-2 days
== END 2020-03-01 03:45 | disposition home or self-care (01) ==
LOC: EC 02:15
DX: S93.402A Sprain of unspecified ligament of left ankle, initial encounter (principal); E11.9 Type 2 diabetes mellitus without complications; I10 Essential (primary) hypertension; E78.5 Hyperlipidemia, unspecified; Z79.899 Other long term (current) drug therapy; Z79.4 Long term (current) use of insulin; Z88.8 Allergy status to other drugs, medicaments and biological substances; X50.9XXA Other and unspecified overexertion or strenuous movements or postures, initial encounter; Y93.64 Activity, baseball; Y92.320 Baseball field as the place of occurrence of the external cause
CPT/HCPCS: 99283

== ENCOUNTER → 2020-04-23 | Outpatient (CLI) | payer OTHER ==
[2020-04-23 16:37] LABS: African American GFR (CKD) 87.1 (60.0-200.0); Albumin 4.9 g/dL (3.80-4.90); Albumin/Globulin Ratio 2.13 (1.60-3.17); Anion Gap 11.3 mmol/L (4.00-12.00); BUN/Creat Ratio 16.67 Ratio (12.00-20.00); Calcium 9.8 mg/dL (8.7-10.3); Carbon Dioxide 21.7 mmol/L (21.6-31.8); Globulin 2.3 g/dL (1.6-3.3); Non-African American GFR(CKD) 75.2 (60.0-200.0); Potassium 4.4 mmol/L (3.5-5.5); Total Bilirubin 0.4 mg/dL (0.2-1.2); Total Protein 7.2 g/dL (6.2-8.2)
[2020-04-23 17:22] LABS: Hemoglobin A1C 7.1 % (4.0-6.0)
== END | disposition home or self-care (01) ==
LOC: LABWHC1 09:32
PROVIDERS: ATTEND Family Medicine
DX: E11.9 Type 2 diabetes mellitus without complications (principal)
CPT/HCPCS: 36415; 80053; 83036

== ENCOUNTER → 2020-08-02 | Outpatient (CLI) | payer OTHER ==
--- NOTE | 2020-08-03 07:41 | ECHOF ---
Referral Reason:R01.0 heart murmur MEASUREMENTS -------- HEIGHT: 157.5 cm WEIGHT: 93.0 kg BP: RVIDd: 2.6 cm (< 3.3) IVSd: 1.1 cm (0.6 - 1.1) LVIDd: 4.4 cm (3.9 - 5.3) LVPWd: 1.2 cm (0.6 - 1.1) IVSs: 1.2 cm LVIDs: 3.0 cm LVPWs: 1.7 cm LA Diam: 3.4 cm (2.7 - 3.8) LAESV Index (A-L): 32.62 ml/m Ao Diam: 2.7 cm (2.0 - 3.7) AV Cusp: 1.2 cm (1.5 - 2.6) MV EXCURSION: 20.954 mm (> 18.000) MV EF SLOPE: 90 mm/s (70 - 150) EPSS: 0.3 cm MV E Juan Diego: 1.03 m/s MV DecT: 272 ms MV A Juan Diego: 0.93 m/s MV E/A Ratio: 1.10 RAP: 5.00 mmHg RVSP: 15.17 mmHg FINDINGS -------- Sinus rhythm. This was a technically good study. LV size, wall thickness and systolic function are normal, with an EF greater than 55%. The left carol tricular size is normal. The right ventricle is normal in size. LA is midly dilated 29-33ml/m2. The right atrial size is normal. The aortic valve is trileaflet, and appears structurally normal. No aortic stenosis or regurgitation. Mild mitral regurgitation is present. Mild tricuspid regurgitation present. Right ventricular systolic pressure is normal at < 35 mmHg. There is no pulmonic regurgitation present. The aortic root size is normal. There is no pericardial effusion. CONCLUSIONS -------- 1. LV size, wall thickness and systolic function are normal, with an EF greater than 55%. 2. The left ventricular size is normal. 3. The right ventricle is normal in size. 4. LA is midly dilated 29-33ml/m2. 5. The right atrial size is normal. 6. The aortic valve is trileaflet, and appears structurally normal. No aortic stenosis or regurgitati on. 7. Mild mitral regurgitation is present. 8. Mild tricuspid regurgitation present. 9. The aortic root size is normal. 10. There is no pericardial effusion. MUSIC DIRECTOR: Anel Villagomez RDCS
== END ==
LOC: RADECHMAIN 14:50
PROVIDERS: ATTEND Family Medicine
DX: I08.1 Rheumatic disorders of both mitral and tricuspid valves (principal)
CPT/HCPCS: 93306

== ENCOUNTER → 2020-10-08 | Outpatient (CLI) | payer OTHER ==
[2020-10-08 15:55] LABS: African American GFR (CKD) 107.9 (60.0-200.0); Albumin 5.1 g/dL (3.80-4.90); Albumin/Globulin Ratio 2.13 (1.60-3.17); Anion Gap 6.8 mmol/L (4.00-12.00); Calcium 10.3 mg/dL (8.7-10.3); Carbon Dioxide 28.2 mmol/L (21.6-31.8); Chol/HDL Ratio 5.76; Globulin 2.4 g/dL (1.6-3.3); LDL Cholesterol,Calculated 78.6 mg/dL (0.0-131.0); Non-African American GFR(CKD) 93.1 (60.0-200.0); Total Bilirubin 0.4 mg/dL (0.2-1.2); Total Protein 7.5 g/dL (6.2-8.2); VLDL Calculation 40.4 mg/dL (5.00-40.00)
== END | disposition home or self-care (01) ==
LOC: LABWHC1 10:31
PROVIDERS: ATTEND Family Medicine
DX: E11.9 Type 2 diabetes mellitus without complications (principal); I10 Essential (primary) hypertension
CPT/HCPCS: 36415; 80053; 80061; 83036

== ENCOUNTER 2021-09-05 11:20 | Emergency (ER) | payer OTHER ==
[2021-09-05 11:30] VITALS: BP 176/92; PULSE 88; RESP 18; TEMP 97.9
--- NOTE | 2021-09-05 12:02 | XR ---
Right shoulder HISTORY: Pain 3 views of the right shoulder Bone mineralization, joint spaces and alignment are maintained. No fracture or dislocation. IMPRESSION: No acute abnormality is evident.
[2021-09-05] MEDS ORDERED: DEXAMETHASONE SOD PHOSPHATE 10 MG/ML 1 ML VIAL IM STA (12:17)
--- NOTE | 2021-09-05 12:17 | ED ---
Upper Extremity HPI - General Chief Complaint: Extremity Injury, Upper Stated Complaint: rt shoulder injury Time Seen by Provider: 09/05/21 11:35 Source: patient, RN notes reviewed Mode of arrival: ambulatory Limitations: no limitations - History of Present Illness Initial Comments: 41-year-old male presents emergency from chief complaint right shoulder pain. Patient states that he started having discomfort after complaints softball. Patient states he has pain with certain range of motion and pain radiates up her shoulder down. Patient is right-hand dominant no paresthesias no neck pain neck stiffness no trauma itself. Patient had no prior right shoulder injury or surgery - Related Data Home Medications Medication Instructions Recorded Confirmed Atorvastatin [Lipitor] 80 mg PO HS 03/07/18 08/18/20 Pioglitazone [Actos] 30 mg PO DAILY 03/07/18 08/18/20 lisinopriL [Zestril] 40 mg PO QAM 03/07/18 08/18/20 Dicyclomine [Bentyl] 10 mg PO BID 08/18/20 08/18/20 Ertugliflozin Pidolate [Steglatro] 15 mg PO DAILY 08/18/20 08/18/20 Insulin Glargine,Hum.rec.anlog 50 units SQ HS 08/18/20 08/18/20 [[place]oujeo Max Solostar] Insulin Lispro [humaLOG Kwikpen] 0 unit SQ ACHS PRN 08/18/20 08/18/20 Insulin Lispro [humaLOG Kwikpen] 5 unit SQ ACHS 08/18/20 08/18/20 Meloxicam [Mobic] 7.5 mg PO DAILY 08/18/20 08/18/20 Multivitamins, Thera [Multivitamin 1 tab PO DAILY 08/18/20 08/18/20 (formulary)] Topiramate-Dose Unk 1 tab PO BID 08/18/20 metFORMIN HCL [metFORMIN HCL ER] 750 mg PO BID 08/18/20 08/18/20 Previous Rx's Medication Instructions Recorded HYDROcodone/APAP 5-325MG [[place] 1 tab PO Q6HR PRN #10 tab 10/28/19 5-325] Ibuprofen [Motrin] 600 mg PO Q8HR PRN #30 tab 09/05/21 Allergies Allergy/AdvReac Type Severity Reaction Status Date / Time metformin Allergy Unknown Verified 09/05/21 11:31 Review of Systems ROS Statement: Those systems with pertinent positive or pertinent negative responses have been documented in the HPI. ROS Other: All systems not noted in ROS Statement are negative. Past Medical History Past Medical History: Diabetes Mellitus, GERD/Reflux, Hyperlipidemia, Hypertension Additional Past Medical History / Comment(s): Hx heart murmur, BLOOD WITH BM History of Any Multi-Drug Resistant Organisms: None Reported Past Surgical History: Cholecystectomy, Hernia Repair, Orthopedic Surgery Additional Past Surgical History / Comment(s): Lump removed from neck. Lt shoulder SX, hiatal hernia surgery 2019, RT KNEE SX Past Anesthesia/Blood Transfusion Reactions: No Reported Reaction Past Psychological History: No Psychological Hx Reported Smoking Status: Never smoker Past Alcohol Use History: None Reported Past Drug Use History: None Reported - Past Family History Mother Family Medical History: Cancer Father Family Medical History: No Reported History General Exam Limitations: no limitations General appearance: alert, in no apparent distress Head exam: Present: atraumatic, normocephalic, normal inspection Neck exam: Present: normal inspection, full ROM. Absent: tenderness, meningismus, lymphadenopathy Respiratory exam: Present: normal lung sounds bilaterally. Absent: respiratory distress, wheezes, rales, rhonchi, stridor Cardiovascular Exam: Present: regular rate, normal rhythm, normal heart sounds. Absent: systolic murmur, diastolic murmur, rubs, gallop, clicks Extremities exam: Present: other (Right shoulder there is tightness on the lateral portion subacromium space., Pain with needs impingement, apprehension test neurovascular intact) Course Vital Signs 09/05/21 11:29 Temperature 97.9 F Pulse Rate 88 Respiratory 18 Rate Blood Pressure 176/92 O2 Sat by Pulse 98 Oximetry Medical Decision Making - Medical Decision Making X-ray shows no acute abnormality. I do believe this is related to her right shoulder tendinitis, rotator cuff strain. Patient we discharged stable condition return parameters discussed. Disposition Clinical Impression: Right shoulder strain, Right shoulder tendinitis Disposition: HOME SELF-CARE Condition: Stable Instructions (If sedation given, give patient instructions): Shoulder Sprain (ED), Rotator Cuff Tendinitis (ED) Additional Instructions: Please return to the Emergency Department if symptoms worsen or any other concerns. Prescriptions: Ibuprofen [Motrin] 600 mg PO Q8HR PRN #30 tab PRN Reason: Pain Is patient prescribed a controlled substance at d/c from ED?: No Referrals: Dejan De La Fuente MD [Primary Care Provider] - 1-2 days Joseph Gaitan DO [Doctor of Osteopathic Medicine] - 1-2 days Time of Disposition: 12:17
[2021-09-05] MEDS ORDERED: ACET/COD 300 MG/30 MG STARTER PACK 6 TAB BTL PO STA (12:18)
== END 2021-09-05 12:51 | disposition home or self-care (01) ==
LOC: EC 11:20
DX: S46.011A Strain of muscle(s) and tendon(s) of the rotator cuff of right shoulder, initial encounter (principal); M77.8 Other enthesopathies, not elsewhere classified; E11.9 Type 2 diabetes mellitus without complications; K21.9 Gastro-esophageal reflux disease without esophagitis; I10 Essential (primary) hypertension; E78.5 Hyperlipidemia, unspecified; Z88.8 Allergy status to other drugs, medicaments and biological substances; Z79.899 Other long term (current) drug therapy; Z79.84 Long term (current) use of oral hypoglycemic drugs; Z79.4 Long term (current) use of insulin; X58.XXXA Exposure to other specified factors, initial encounter; Y93.64 Activity, baseball
CPT/HCPCS: 73030; 99283; 96372; J1100

== ENCOUNTER → 2021-10-05 | Outpatient (CLI) | payer OTHER ==
--- NOTE | 2021-10-06 04:40 | MR ---
EXAMINATION TYPE: MR shoulder RT wo con DATE OF EXAM: 10/05/2021 COMPARISON: None HISTORY: softball injury, 09/03/21, right shoulder pain, loss of ROM Multiplanar multiecho imaging of the right shoulder without contrast. The supraspinatus tendon is intact. There is minor spurring at the AC joint. No subacromial impingeme nt. The biceps tendon is intact. There is small amount of fluid around the biceps tendon. Subscapularis t endon is intact. The glenoid teresa are intact. There is small amount of fluid accumulation in the subdeltoid bursa. No evidence of a fracture. Humer al head is intact. IMPRESSION: No evidence of rotator cuff tear. There is a mild subdeltoid effusion consistent with bursitis.
== END | disposition home or self-care (01) ==
LOC: RADMRIMAIN 20:43
PROVIDERS: ATTEND Orthopaedic Surgery
DX: M25.411 Effusion, right shoulder (principal); M75.51 Bursitis of right shoulder

== ENCOUNTER 2022-04-07 11:42 | Emergency (ER) | payer OTHER ==
[2022-04-07 12:41] VITALS: TEMP 98.6
[2022-04-07] MEDS ORDERED: PANTOPRAZOLE 40 MG/10 ML VIAL IVP STA (12:59)
[2022-04-07] MEDS ORDERED: SODIUM CHLORIDE 0.9% 500 ML 500 ML IV STA (12:59)
--- NOTE | 2022-04-07 13:06 | ED ---
Abdominal Pain HPI - General Chief Complaint: Abdominal Pain Stated Complaint: abd pain Time Seen by Provider: 04/07/22 12:51 Source: patient, RN notes reviewed, old records reviewed Mode of arrival: ambulatory Limitations: no limitations - History of Present Illness Initial Comments: This is a 41-year-old well-appearing male that presents ambulatory with complaints of left upper abdominal pain that started about 4 days ago. States the pain came on at rest and felt like it was gas. Statse did have a bowel movement and took some antacids with no relief. States did have a hard bowel movement yesterday. Does have a history of diabetes, GERD, hypertension, surgical history of cholecystectomy and hiatal hernia repair. Denies any chest pain or shortness of breath. MD Complaint: abdominal pain -: days(s) (4) Location: LUQ, RUQ, epigastric Severity scale (1-10): 9 Quality: cramping Consistency: constant Worsens With: movement, other (palpation) Associated Symptoms: chills Treatments Prior to Arrival: antacids - Related Data Home Medications Medication Instructions Recorded Confirmed lisinopriL [Zestril] 40 mg PO DAILY 03/07/18 04/07/22 Dulaglutide [Trulicity] 4.5 mg SQ FR 04/07/22 04/07/22 Ergocalciferol (Vitamin D2) 1,250 mcg PO KRUEGER 04/07/22 04/07/22 [Drisdol (50,000 Iu)] Fenofibrate Nanocrystallized 145 mg PO DAILY 04/07/22 04/07/22 [Fenofibrate] Ibuprofen [Motrin] 800 mg PO DAILY PRN 04/07/22 04/07/22 Insulin Glargine,Hum.rec.anlog 55 units SQ SUMOTUWETHSA 04/07/22 04/07/22 [Lantus Solostar Pen] Pioglitazone [Actos] 15 mg PO AC-BID 04/07/22 04/07/22 Rosuvastatin [Crestor] 20 mg PO DAILY 04/07/22 04/07/22 Testosterone Cypionate 200 mg IM Q14D 04/07/22 04/07/22 [Depo-Testosterone] Previous Rx's Medication Instructions Recorded Ondansetron Odt [Zofran Odt] 4 mg PO Q8HR PRN #10 tab 04/07/22 Allergies Allergy/AdvReac Type Severity Reaction Status Date / Time metformin AdvReac Abdominal Verified 04/07/22 13:39 Pain Review of Systems ROS Statement: Those systems with pertinent positive or pertinent negative responses have been documented in the HPI. ROS Other: All systems not noted in ROS Statement are negative. Past Medical History Past Medical History: Diabetes Mellitus, GERD/Reflux, Hyperlipidemia, Hypertension Additional Past Medical History / Comment(s): Hx heart murmur, BLOOD WITH BM History of Any Multi-Drug Resistant Organisms: None Reported Past Surgical History: Cholecystectomy, Hernia Repair, Orthopedic Surgery Additional Past Surgical History / Comment(s): Lump removed from neck. Lt shoulder SX, hiatal hernia surgery 2019, RT KNEE SX Past Anesthesia/Blood Transfusion Reactions: No Reported Reaction Past Psychological History: No Psychological Hx Reported Smoking Status: Never smoker Past Alcohol Use History: None Reported Past Drug Use History: None Reported - Past Family History Mother Family Medical History: Cancer Father Family Medical History: No Reported History General Exam Limitations: no limitations General appearance: alert, in no apparent distress Head exam: Present: atraumatic Eye exam: Absent: scleral icterus, conjunctival injection, periorbital swelling ENT exam: Present: normal oropharynx, mucous membranes moist Neck exam: Present: full ROM. Absent: tenderness, meningismus, lymphadenopathy Respiratory exam: Present: normal lung sounds bilaterally. Absent: respiratory distress, wheezes, rales, rhonchi, stridor, chest wall tenderness, accessory muscle use Cardiovascular Exam: Present: tachycardia GI/Abdominal exam: Present: soft, tenderness (Epigastric and right left upper quadrant). Absent: distended, rigid Extremities exam: Present: full ROM, normal capillary refill. Absent: tenderness, pedal edema Back exam: Present: normal inspection, full ROM. Absent: tenderness, CVA tenderness (R), CVA tenderness (L), rash noted Neurological exam: Present: alert, oriented X3, normal gait Psychiatric exam: Present: normal affect, normal mood Skin exam: Present: warm, dry, intact, normal color. Absent: cyanosis, d iaphoretic, petechiae, pallor Course Vital Signs 04/07/22 04/07/22 04/07/22 12:39 13:22 13:30 Temperature 98.6 F Pulse Rate 108 H 110 H 111 H Respiratory 20 24 23 Rate Blood Pressure 133/90 159/96 O2 Sat by Pulse 98 96 99 Oximetry 04/07/22 04/07/22 04/07/22 13:40 13:50 14:00 Temperature Pulse Rate 113 H 105 H 105 H Respiratory 21 19 18 Rate Blood Pressure 147/99 147/99 147/99 O2 Sat by Pulse 100 100 99 Oximetry 04/07/22 04/07/22 04/07/22 14:10 14:20 14:30 Temperature Pulse Rate 117 H 114 H 112 H Respiratory 17 21 23 Rate Blood Pressure 152/96 152/96 152/96 O2 Sat by Pulse 99 98 99 Oximetry 04/07/22 04/07/22 04/07/22 14:40 14:50 15:00 Temperature Pulse Rate 114 H 113 H Respiratory 19 21 Rate Blood Pressure 153/94 153/94 153/94 O2 Sat by Pulse 99 97 Oximetry 04/07/22 04/07/22 04/07/22 15:10 15:20 15:30 Temperature Pulse Rate 111 H 105 H Respiratory 18 28 H Rate Blood Pressure 165/91 165/91 165/91 O2 Sat by Pulse 97 Oximetry 04/07/22 04/07/22 04/07/22 15:40 15:50 16:00 Temperature Pulse Rate 108 H 109 H 110 H Respiratory 21 24 22 Rate Blood Pressure 159/99 159/99 159/99 O2 Sat by Pulse 96 96 97 Oximetry 04/07/22 16:10 Temperature Pulse Rate 109 H Respiratory 16 Rate Blood Pressure 140/89 O2 Sat by Pulse 97 Oximetry Medical Decision Making - Medical Decision Making EKG due to upper abdominal pain with nausea, interpreted by me showing sinus tachycardia with a rate of 106, no T-wave inversions or ST elevations. Troponin negative at 0.012. Mild leukocytosis. Lipase of 546 and amylase of 86. Total bili 0.8. Lactic acid 2.2, patient was given a liter of normal saline CT abdomen and pelvis interpreted by me shows no dilated bowel loops. Radiologist interpretation mild pancreatitis with the liver. Patient does have a history of cholecystectomy and hiatal hernia repair. On physical exam, patient with minimally tender left upper quadrant. Afebrile. Ralls II score is mild Patient was given total of 1 mg of Dilaudid in the emergency room with Zofran. Patient was offered admission and declined, states he is comfortable being discharged home, directed to eat small low fat meals and advance his diet slowly over the next 3-6 days. Avoid alcohol and follow up with his primary care doctor and Sunday. Return to the emergency room with any new or concerning symptoms. Strict return parameters were discussed with patient to return with any new or concerning symptoms with increased pain, fevers or persistent nausea vomiting. Follow-up with his doctor on Sunday morning. Case discussed with Dr. Yung. - Lab Data Result diagrams: 04/07/22 13:04/07/22 13: Lab Results 04/07/22 04/07/22 04/07/22 Range/Units 13:22 13: 13: WBC 14.0 H (3.8-10.6) k/uL RBC 5.06 (4.30-5.90) m/uL Hgb 14.9 (13.0-17.5) gm/dL Hct 42.5 (39.0-53.0) % MCV 83.9 (80.0-100.0) fL MCH 29.4 (25.0-35.0) pg MCHC 35.0 (31.0-37.0) g/dL RDW 12.4 (11.5-15.5) % Plt Count 289 (150-450) k/uL MPV 8.4 Neutrophils % 79 % Lymphocytes % 13 % Monocytes % 5 % Eosinophils % 1 % Basophils % 1 % Neutrophils # 11.1 H (1.3-7.7) k/uL Lymphocytes # 1.8 (1.0-4.8) k/uL Monocytes # 0.7 (0-1.0) k/uL Eosinophils # 0.2 (0-0.7) k/uL Basophils # 0.1 (0-0.2) k/uL Sodium 137 (137-145) mmol/L Potassium 4.6 (3.5-5.1) mmol/L Chloride 100 (98-107) mmol/L Carbon Dioxide 24 (22-30) mmol/L Anion Gap 13 mmol/L BUN 12 (9-20) mg/dL Creatinine 0.77 (0.66-1.25) mg/dL Est GFR (CKD-EPI)AfAm >90 (>60 ml/min/1.73 sqM) Est GFR (CKD-EPI)NonAf >90 (>60 ml/min/1.73 sqM) Glucose 183 H (74-99) mg/dL POC Glucose (mg/dL) (70-110) mg/dL POC Glu [employer] ID Lactic Ac Sepsis Rflx Plasma Lactic Acid Agustin 2.2 H* (0.7-2.0) mmol/L Calcium 9.8 (8.4-10.2) mg/dL Total Bilirubin 0.8 (0.2-1.3) mg/dL AST 41 (17-59) U/L ALT 44 (4-49) U/L Alkaline Phosphatase 44 (38-126) U/L Troponin I (0.000-0.034) ng/mL Total Protein 8.5 H (6.3-8.2) g/dL Albumin 5.3 H (3.5-5.0) g/dL Amylase 86 (30-110) U/L Lipase 546 H (23-300) U/L 04/07/22 04/07/22 04/07/22 Range/Units 13:22 13:26 13:59 WBC (3.8-10.6) k/uL RBC (4.30-5.90) m/uL Hgb (13.0-17.5) gm/dL Hct (39.0-53.0) % MCV (80.0-100.0) fL MCH (25.0-35.0) pg MCHC (31.0-37.0) g/dL RDW (11.5-15.5) % Plt Count (150-450) k/uL MPV Neutrophils % % Lymphocytes % % Monocytes % % Eosinophils % % Basophils % % Neutrophils # (1.3-7.7) k/uL Lymphocytes # (1.0-4.8) k/uL Monocytes # (0-1.0) k/uL Eosinophils # (0-0.7) k/uL Basophils # (0-0.2) k/uL Sodium (137-145) mmol/L Potassium (3.5-5.1) mmol/L Chloride (98-107) mmol/L Carbon Dioxide (22-30) mmol/L Anion Gap mmol/L BUN (9-20) mg/dL Creatinine (0.66-1.25) mg/dL Est GFR (CKD-EPI)AfAm (>60 ml/min/1.73 sqM) Est GFR (CKD-EPI)NonAf (>60 ml/min/1.73 sqM) Glucose (74-99) mg/dL POC Glucose (mg/dL) 162 H (70-110) mg/dL POC Glu [employer] ID Tabby Rosen Lactic Ac Sepsis Rflx Y Plasma Lactic Acid Agustin (0.7-2.0) mmol/L Calcium (8.4-10.2) mg/dL Total Bilirubin (0.2-1.3) mg/dL AST (17-59) U/L ALT (4-49) U/L Alkaline Phosphatase (38-126) U/L Troponin I <0.012 (0.000-0.034) ng/mL Total Protein (6.3-8.2) g/dL Albumin (3.5-5.0) g/dL Amylase (30-110) U/L Lipase (23-300) U/L 04/07/ Range/Units 17:16 WBC (3.8-10.6) k/uL RBC (4.30-5.90) m/uL Hgb (13.0-17.5) gm/dL Hct (39.0-53.0) % MCV (80.0-100.0) fL MCH (25.0-35.0) pg MCHC (31.0-37.0) g/dL RDW (11.5-15.5) % Plt Count (150-450) k/uL MPV Neutrophils % % Lymphocytes % % Monocytes % % Eosinophils % % Basophils % % Neutrophils # (1.3-7.7) k/uL Lymphocytes # (1.0-4.8) k/uL Monocytes # (0-1.0) k/uL Eosinophils # (0-0.7) k/uL Basophils # (0-0.2) k/uL Sodium (137-145) mmol/L Potassium (3.5-5.1) mmol/L Chloride (98-107) mmol/L Carbon Dioxide (22-30) mmol/L Anion Gap mmol/L BUN (9-20) mg/dL Creatinine (0.66-1.25) mg/dL Est GFR (CKD-EPI)AfAm (>60 ml/min/1.73 sqM) Est GFR (CKD-EPI)NonAf (>60 ml/min/1.73 sqM) Glucose (74-99) mg/dL POC Glucose (mg/dL) (70-110) mg/dL POC Glu [employer] ID Lactic Ac Sepsis Rflx Plasma Lactic Acid Agustin 1.5 (0.7-2.0) mmol/L Calcium (8.4-10.2) mg/dL Total Bilirubin (0.2-1.3) mg/dL AST (17-59) U/L ALT (4-49) U/L Alkaline Phosphatase (38-126) U/L Troponin I (0.000-0.034) ng/mL Total Protein (6.3-8.2) g/dL Albumin (3.5-5.0) g/dL Amylase (30-110) U/L Lipase (23-300) U/L - EKG Data EKG shows normal: sinus rhythm Rate: tachycardia (Ventricular rate 106, UT interval .183, QRS 0.102, QTC 0.385; left axis deviation; no ST elevation) Disposition Clinical Impression: Pancreatitis Disposition: HOME SELF-CARE Condition: Good Instructions (If sedation given, give patient instructions): Pancreatitis (ED) Additional Instructions: Increase your fluid intake. Eat small low fat meals over the next 3-6 days. Increase your fluid intake. Avoid alcohol. Take tramadol for pain as needed and Zofran as needed for nausea. Follow-up with the primary care doctor on Sunday. Prescriptions: Ondansetron Odt [Zofran Odt] 4 mg PO Q8HR PRN #10 tab PRN Reason: Nausea Is patient prescribed a controlled substance at d/c from ED?: No Referrals: Dejan De La Fuente MD [Primary Care Provider] - 1-2 days Time of Disposition: 16:51
[2022-04-07 13:27] LABS: Glucose,Whole Blood 162 mg/dL (70-110)
[2022-04-07 13:42] LABS: Basophils # (A) 0.1 k/uL (0-0.2); Basophils % (A) 1 %; Eosinophils # (A) 0.2 k/uL (0-0.7); Eosinophils % (A) 1 %; HCT 42.5 % (39.0-53.0); HGB 14.9 gm/dL (13.0-17.5); Lymphocytes # (A) 1.8 k/uL (1.0-4.8); Lymphocytes % (A) 13 %; MCH 29.4 pg (25.0-35.0); MCV 83.9 fL (80.0-100.0); Mean Platelet Volume 8.4; Monocytes # (A) 0.7 k/uL (0-1.0); Monocytes % (A) 5 %; Neutrophils # (A) 11.1 k/uL (1.3-7.7); Neutrophils % (A) 79 %; Platelet Count 289 k/uL (150-450); RBC 5.06 m/uL (4.30-5.90); RDW 12.4 % (11.5-15.5)
[2022-04-07 13:55] LABS: ALT 44 U/L (4-49); African American GFR (CKD) >90 (>60 ml/min/1.73 sqM); Amylase 86 U/L (30-110); Anion Gap 13 mmol/L; Blood Urea Nitrogen 12 mg/dL (9-20); Calcium 9.8 mg/dL (8.4-10.2); Carbon Dioxide 24 mmol/L (22-30); Chloride 100 mmol/L (98-107); Glucose 183 mg/dL (74-99); Lipase 546 U/L (23-300); Non-African American GFR(CKD) >90 (>60 ml/min/1.73 sqM); Sodium 137 mmol/L (137-145); Total Bilirubin 0.8 mg/dL (0.2-1.3)
[2022-04-07 13:58] LABS: AST 41 U/L (17-59); Albumin 5.3 g/dL (3.5-5.0); Alkaline Phosphatase 44 U/L (38-126); Potassium 4.6 mmol/L (3.5-5.1); Total Protein 8.5 g/dL (6.3-8.2)
[2022-04-07] MEDS ORDERED: SODIUM CHLORIDE 0.9% 500 ML 500 ML IV ONE (14:03)
[2022-04-07] MEDS ORDERED: SODIUM CHLORIDE 0.9% 1,000 ML IV SCH (14:15)
[2022-04-07] MEDS ORDERED: HYDROmorphone 0.5 MG/0.5 ML SYRINGE IVP STA ×2 (14:18→16:06)
--- NOTE | 2022-04-07 15:43 | CT ---
EXAMINATION TYPE: CT abdomen pelvis w con DATE OF EXAM: 04/07/2022 COMPARISON: 08/21/2017 HISTORY: Mid abdominal pain. CT DLP: 1228.8 mGycm CONTRAST: CT scan of the abdomen and pelvis is performed without Oral Contrast and with IV Contrast, patient in jected with 100ml mL of Isovue 300. FINDINGS: LUNG BASES-: No visible nodule. No infiltrate. LIVER/GB: The gallbladder surgically absent. Mild hepatic steatosis. No space occupying hepatic le jorgito. Biliary tree is of normal caliber. PANCREAS: There is mild stranding adjacent to to the pancreatic tail. Correlate for mild changes of p ancreatitis with amylase and lipase. SPLEEN: No splenic enlargement. No lesion seen. ADRENALS: No nodule. No thickening. KIDNEYS/BLADDER: No hydronephrosis. No nephrolithiasis. No distinct renal mass. Urinary bladder g rossly unremarkable. BOWEL: Normal appendix. Normal bowel caliber. No inflammation. Mild small bowel ileus suggested. GENITAL ORGANS: No gross abnormality. LYMPH NODES: No greater than 1cm abdominal or pelvic lymph nodes are appreciated. AORTA: No significant abnormality. OSSEOUS STRUCTURES: No significant abnormality is seen. OTHER: No significant additional abnormality is seen. IMPRESSION: 1. Findings suspicious for mild pancreatitis. Correlate with amylase and lipase. 2. Fatty liver.
[2022-04-07 16:19] VITALS: BP 140/89; PULSE 109; RESP 16
[2022-04-07] MEDS ORDERED: traMADol 50 MG STARTER PACK 3 TAB BTL PO STA (16:51)
== END 2022-04-07 18:00 | disposition home or self-care (01) ==
LOC: EC 11:42
DX: K85.90 Acute pancreatitis without necrosis or infection, unspecified (principal); I10 Essential (primary) hypertension; E11.9 Type 2 diabetes mellitus without complications; K21.9 Gastro-esophageal reflux disease without esophagitis; E78.5 Hyperlipidemia, unspecified; Z79.811 Long term (current) use of aromatase inhibitors; Z79.899 Other long term (current) drug therapy; Z79.4 Long term (current) use of insulin; Z88.8 Allergy status to other drugs, medicaments and biological substances
CPT/HCPCS: 36415; 93005; 80053; 82150; 83605; 83690; 84484; 85025; 74177; 99284; 96374; 96375 ×2; 96361 ×4; C9113; J1170; Q9967

== ENCOUNTER → 2022-04-18 | Outpatient (CLI) | payer OTHER ==
[2022-04-18 19:15] LABS: Amylase 56 U/L (23-121); Lipase 60 U/L (14-60)
== END | disposition home or self-care (01) ==
LOC: LABWHC1 14:09
PROVIDERS: ATTEND Family Medicine
DX: R10.9 Unspecified abdominal pain (principal)
CPT/HCPCS: 36415; 82150; 83690

== ENCOUNTER 2022-05-11 07:44 | Day surgery (SDC) | payer OTHER ==
[2022-05-08 16:20] VITALS: BMI 35.9
[~2022-05-11 07:44] MED LIST changes: -DEXAMETHASONE SOD PHOSPHATE 10 MG/ML 1 ML VIAL IV ONE; -HEPARIN SODIUM,PORCINE 5,000 UNIT/ML 1 ML VIAL SQ ONE; -LIDOCAINE 1% (10MG/ML) FOR IV START INTRADERMA PRN; -MIDAZOLAM 2 MG/2 ML VIAL IV PRN; -ONDANSETRON 4 MG/2 ML VIAL IVP ONE; -fentaNYL (PF) 50 MCG/ML 2 ML AMP IVP PRN
[2022-05-11 08:19] VITALS: TEMP 97.1
[2022-05-11 08:24] LABS: Glucose,Whole Blood 149 mg/dL (70-110)
--- NOTE | 2022-05-11 08:28 | P.GSCN ---
History of Present Illness Consult date: 05/11/22 Reason for Consult: Diarrhea History of present illness: This 41-year-old male who has complaints of diarrhea. Patient's undergoing colonoscopy today to evaluate for possible colitis. Past Medical History Past Medical History: Diabetes Mellitus, GERD/Reflux, Hyperlipidemia, Hypertension Additional Past Medical History / Comment(s): Hx heart murmur History of Any Multi-Drug Resistant Organisms: None Reported Past Surgical History: Cholecystectomy, Hernia Repair, Orthopedic Surgery Additional Past Surgical History / Comment(s): Lump removed from neck. Lt shoulder SX, hiatal hernia surgery 2019 Past Anesthesia/Blood Transfusion Reactions: No Reported Reaction, Motion Sic kness Past Psychological History: No Psychological Hx Reported Smoking Status: Never smoker Past Alcohol Use History: Occasional Additional Past Alcohol Use History / Comment(s): ONCE A WEEK A BEER Past Drug Use History: None Reported - Past Family History Mother Family Medical History: Cancer Father Family Medical History: No Reported History Medications and Allergies Home Medications Medication Instructions Recorded Confirmed Type lisinopriL [Zestril] 40 mg PO DAILY 03/07/18 05/08/22 History Ergocalciferol (Vitamin D2) 1,250 mcg PO KRUEGER 04/07/22 05/08/22 History [Drisdol (50,000 Iu)] Fenofibrate Nanocrystallized 145 mg PO DAILY 04/07/22 05/08/22 History [Fenofibrate] Ibuprofen [Motrin] 800 mg PO DAILY PRN 04/07/22 05/08/22 History Insulin Glargine,Hum.rec.anlog 54 units SQ DAILY 04/07/22 05/08/22 History [Lantus Solostar Pen] Pioglitazone [Actos] 15 mg PO AC-BID 04/07/22 05/08/22 History Rosuvastatin [Crestor] 20 mg PO DAILY 04/07/22 05/08/22 History Testosterone Cypionate 200 mg IM Q14D 04/07/22 05/08/22 History [Depo-Testosterone] Omeprazole 20 mg PO DAILY 05/08/22 05/08/22 History Allergies Allergy/AdvReac Type Severity Reaction Status Date / Time metformin AdvReac Abdominal Verified 05/08/22 16:08 Pain Surgical - Exam Vital Signs Temp Pulse Resp BP Pulse Ox 97.1 F L 93 18 166/90 97 05/11/22 08:15 05/11/22 08:15 05/11/22 08:15 05/11/22 08:15 05/11/22 08:15 - General well developed, well nourished, no distress - Eyes PERRL - ENT normal pinna - Neck no masses - Respiratory normal expansion - Cardiovascular Rhythm: regular - Abdomen Abdomen: soft, non tender Results - Labs Abnormal Lab Results - Last 24 Hours (Table) 05/11/22 Range/Units 08:13 POC Glucose (mg/dL) 149 H (70-110) mg/dL Assessment and Plan Assessment: Diarrhea. We'll perform colonoscopy.
[2022-05-11] MEDS ORDERED: PROPOFOL 10 MG/ML 20 ML VIAL IV ONE (08:30)
--- NOTE | 2022-05-11 08:45 | P.OP ---
Date of Procedure: 05/11/22 Preoperative Diagnosis: Diarrhea Postoperative Diagnosis: Diarrhea Procedure(s) Performed: Colonoscopy Anesthesia: MAC Surgeon: Charlie Blount Pathology: other (; Sigmoid colon) Condition: stable Disposition: PACU Description of Procedure: The patient's placed on the endoscopy table in the lateral position. He received IV sedation. Digital rectal exam performed. This revealed no ebonized. The flexible colonoscope was then placed patient anus passed throughout the entire colon. The ileocecal valve was visualized. The cecum, ascending and transverse colon appeared normal. The descending colon appeared normal. In the sigmoid colon there was no abdomen 9 noted. Due to the patient's symptoms of diarrhea a biopsies performed. Scope was brought back the rectum and this appeared normal. Scope withdrawn for patient.
[2022-05-11 08:53] VITALS: RESP 16
[2022-05-11 09:31] VITALS: BP 116/67; PULSE 84
== END 2022-05-11 09:34 | disposition home or self-care (01) ==
LOC: ORWHC2ENDO 07:44
PROVIDERS: ATTEND Surgery
DX: K63.89 Other specified diseases of intestine (principal); I10 Essential (primary) hypertension; E10.9 Type 1 diabetes mellitus without complications; K21.9 Gastro-esophageal reflux disease without esophagitis; E66.9 Obesity, unspecified; Z90.49 Acquired absence of other specified parts of digestive tract; Z98.890 Other specified postprocedural states; Z79.02 Long term (current) use of antithrombotics/antiplatelets; Z79.890 Hormone replacement therapy; Z79.899 Other long term (current) drug therapy
CPT/HCPCS: 88305; 45380; J2704

== ENCOUNTER → 2022-05-30 | Outpatient (CLI) | payer OTHER ==
[2022-05-31 01:45] LABS: Appearance,Urine Clear (Clear); Bilirubin,Urine Negative (Negative); Blood,Urine Negative (Negative); Color,Urine Yellow (Yellow); Ketones,Urine Negative (Negative); Nitrite,Urine Negative (Negative); PH, Urine 6.5 (5.0-8.0); Specific Gravity,Urine 1.031 (1.001-1.030); Urobilinogen,Urine 0.2 (0.2,1.0)
[2022-05-31 01:47] LABS: African American GFR (CKD) 121.7 (60.0-200.0); Albumin 5.1 g/dL (3.8-4.9); Albumin/Globulin Ratio 1.82 (1.60-3.17); Anion Gap 14.2 mmol/L (10.00-18.00); BUN/Creat Ratio 16.67 Ratio (12.00-20.00); Calcium 10.4 mg/dL (8.7-10.3); Carbon Dioxide 26.8 mmol/L (20.0-27.5); Globulin 2.8 g/dL (1.6-3.3); Potassium 4.3 mmol/L (3.5-5.5); Total Bilirubin 0.2 mg/dL (0.30-1.20); Total Protein 7.9 g/dL (6.2-8.2)
[2022-05-31 14:01] LABS: N. gonorrhoeae,PCR Negative (Neg,Equiv); Neisseria Source Urine
[2022-05-31 21:47] LABS: Urine Creatinine 70.6 mg/dL (39.0-259.0)
== END | disposition home or self-care (01) ==
LOC: LABWHC1 15:58
PROVIDERS: ATTEND Family Medicine
DX: I10 Essential (primary) hypertension (principal); E11.9 Type 2 diabetes mellitus without complications
CPT/HCPCS: 36415; 80053; 81003; 82043; 82570; 83036; 84443; 87086; 87591

== ENCOUNTER → 2022-06-01 | Outpatient (CLI) | payer OTHER ==
--- NOTE | 2022-06-02 07:29 | US ---
EXAMINATION TYPE: US scrotum with doppler. Grayscale and color Doppler Duplex imaging performed of hannah valderrama scrotum. DATE OF EXAM: 06/01/2022 COMPARISON: NONE CLINICAL HISTORY: N50.819 TESTICULAR PAIN, UNSPECIFIED. pain in bilateral testicles for 4-5 days, no injury EXAM MEASUREMENTS: TESTICLES: Right Testicle: 3.5 x 2.7 x 1.6 cm Left Testicle: 3.7 x 3.2 x 2.0 cm EPIDIDYMIS HEAD: Right Epididymis: 1.1 cm Left Epididymis: 0.9 cm Doppler performed to assess for testicular vascularity; good bilateral color flow and waveforms are s een. There is no evidence of testicular torsion. Presence of hydroceles: mild bilaterally Presence of varicoceles: no right groin assessed since pain extends up in inguinal canal - no abnormality seen IMPRESSION: 1. No evidence for testicular torsion or mass. 2. Trace bilateral hydroceles.
== END | disposition home or self-care (01) ==
LOC: RADUSWWP 15:21
PROVIDERS: ATTEND Family Medicine
DX: N43.3 Hydrocele, unspecified (principal); N50.819 Testicular pain, unspecified
CPT/HCPCS: 76870; 93975

== ENCOUNTER → 2022-09-14 | Outpatient (CLI) | payer OTHER ==
[2022-09-14 19:30] LABS: Basophils # (A) 0.03 X 10*3/uL (0.00-0.10); Basophils % (A) 0.6 %; Eosinophils # (A) 0.11 X 10*3/uL (0.04-0.35); Eosinophils % (A) 2.1 %; HCT 41.7 % (39.6-50.0); HGB 13.9 g/dL (13.0-17.0); Immature Grans, Automated 0.4 %; Lymphocytes # (A) 1.79 X 10*3/uL (0.90-5.00); Lymphocytes % (A) 33.6 %; MCH 28.2 pg (27.0-32.0); MCHC 33.3 g/dL (32.0-37.0); MCV 84.6 fL (80.0-97.0); Mean Platelet Volume 10.8 fL (9.5-12.2); Monocytes # (A) 0.41 X 10*3/uL (0.20-1.00); Monocytes % (A) 7.7 %; NRBC Per 100 WBC 0 /100 WBCS (0.0-0.0); Neutrophils # (A) 2.96 X 10*3/uL (1.80-7.70); Neutrophils % (A) 55.6 %; Platelet Count 285 X 10*3/uL (140-440); RBC 4.93 X 10*6/uL (4.40-5.60); RDW 12.2 % (11.5-14.5); WBC 5.32 X 10*3/uL (4.50-10.00)
[2022-09-14 20:42] LABS: ALT 43 U/L (10-49); AST 27 U/L (14-35); African American GFR (CKD) 125.7 (60.0-200.0); Albumin 4.9 g/dL (3.8-4.9); Albumin/Globulin Ratio 1.87 (1.60-3.17); Alkaline Phosphatase 68 U/L (41-126); BUN/Creat Ratio 20.56 Ratio (12.00-20.00); Blood Urea Nitrogen 16.8 mg/dL (9.0-27.0); Calcium 10.1 mg/dL (8.7-10.3); Chloride 97 mmol/L (96-109); Globulin 2.6 g/dL (1.6-3.3); Glucose 157 mg/dL (70-110); Non-African American GFR(CKD) 108.5 (60.0-200.0); Potassium 4.5 mmol/L (3.5-5.5); Sodium 130 mmol/L (135-145); Total Bilirubin <0.15 mg/dL (0.30-1.20); Total Protein 7.5 g/dL (6.2-8.2); Uric Acid 5.3 mg/dL (3.7-8.7)
[2022-09-14 21:04] LABS: Chol/HDL Ratio 13.37 Ratio
[2022-09-14 21:05] LABS: Appearance,Urine Clear (Clear); Bilirubin,Urine Negative (Negative); Blood,Urine Negative (Negative); Color,Urine Yellow (Yellow); Ketones,Urine Negative (Negative); Nitrite,Urine Negative (Negative); PH, Urine 5.5 (5.0-8.0); Specific Gravity,Urine 1.026 (1.001-1.030); Urobilinogen,Urine 0.2 (0.2,1.0)
== END | disposition home or self-care (01) ==
LOC: LABWHC1 09:52
PROVIDERS: ATTEND Family Medicine
DX: Z00.00 Encounter for general adult medical examination without abnormal findings (principal); I10 Essential (primary) hypertension; E11.9 Type 2 diabetes mellitus without complications
CPT/HCPCS: 36415; 80053; 80061; 81001; 82043; 82570; 83036; 83721; 84443; 84550; 85025

== ENCOUNTER 2022-09-18 01:38 | Observation (INO) | payer OTHER ==
[2022-09-18] MEDS ORDERED: FAMOTIDINE 20 MG/2 ML VIAL IV STA (02:25)
[2022-09-18] MEDS ORDERED: KETOROLAC 15 MG/ML 1 ML VIAL IVP STA (02:26)
[2022-09-18] MEDS ORDERED: PANTOPRAZOLE 40 MG/10 ML VIAL IVP STA (02:26)
[2022-09-18] MEDS ORDERED: SODIUM CHLORIDE 0.9% 1,000 ML IV STA ×2 (02:32→05:45)
[2022-09-18 02:46] LABS: Basophils % (A) 0 %; Eosinophils # (A) 0.2 k/uL (0-0.7); Eosinophils % (A) 2 %; HGB 14.2 gm/dL (13.0-17.5); Lymphocytes # (A) 1.8 k/uL (1.0-4.8); Lymphocytes % (A) 17 %; MCHC 35.4 g/dL (31.0-37.0); MCV 81.9 fL (80.0-100.0); Mean Platelet Volume 8.3; Monocytes # (A) 0.9 k/uL (0-1.0); Monocytes % (A) 8 %; Neutrophils # (A) 7.6 k/uL (1.3-7.7); Neutrophils % (A) 71 %; Platelet Count 267 k/uL (150-450); RBC 4.88 m/uL (4.30-5.90); RDW 12.6 % (11.5-15.5); WBC 10.7 k/uL (3.8-10.6)
[2022-09-18 03:04] LABS: Partial Thromboplastin Time 24.7 sec (22.0-30.0); Prothrombin Time 10.4 sec (9.0-12.0)
--- NOTE | 2022-09-18 04:10 | CT ---
EXAM: CT Abdomen and Pelvis With Intravenous Contrast CLINICAL HISTORY: Abdominal pain. TECHNIQUE: Axial computed tomography images of the abdomen and pelvis with intravenous contrast. CTDI is 26 mGy and DLP is 1373.2 mGy-cm. This CT exam was performed using one or more of the following dose reduction techniques: automated exposure control, adjustment of the mA and/or kV according to patient size, and/or use of iterative reconstruction technique. COMPARISON: April 07, 2022. FINDINGS: Lung bases: Unremarkable. No mass. No consolidation. ABDOMEN: Liver: Hepatic steatosis. No focal hepatic lesion. Gallbladder and bile ducts: Cholecystectomy. No ductal dilation. Pancreas: Mild edema in the peripancreatic fat likely related to pancreatitis. No evidence of pancreatic necrosis. No pancreatic ductal dilatation. Spleen: Unremarkable. No splenomegaly. Adrenals: Unremarkable. No mass. Kidneys and ureters: Unremarkable. No solid mass. No hydronephrosis. Stomach and bowel: Unremarkable. No obstruction. No mucosal thickening. PELVIS: Appendix: No findings to suggest acute appendicitis. Bladder: Unremarkable. No mass. Reproductive: Unremarkable as visualized. ABDOMEN and PELVIS: Intraperitoneal space: Unremarkable. No free air. No significant fluid collection. Bones/joints: No acute fracture. No dislocation. Soft tissues: Unremarkable. Vasculature: Unremarkable. No abdominal aortic aneurysm. Lymph nodes: Unremarkable. No enlarged lymph nodes. IMPRESSION: Mild peripancreatic edema likely related to pancreatitis.
--- NOTE | 2022-09-18 04:18 | XR ---
EXAM: XR Chest, 2 Views CLINICAL HISTORY: Arrhythmia TECHNIQUE: Frontal and lateral views of the chest. COMPARISON: November 24, 2014 FINDINGS: Lungs: Unremarkable. No infiltration, atelectasis or mass density. Pleural space: Unremarkable. No pneumothorax. No pleural fluid. Heart: Unremarkable. No cardiomegaly. Mediastinum: Unremarkable. Bones/joints: Unremarkable. No acute abnormalities. IMPRESSION: Negative chest x-rays.
[2022-09-18 04:39] LABS: ALT 29 U/L (4-49); AST 27 U/L (17-59); African American GFR (CKD) >90 (>60 ml/min/1.73 sqM); Albumin 3.9 g/dL (3.5-5.0); Alkaline Phosphatase 63 U/L (38-126); Anion Gap 10 mmol/L; Blood Urea Nitrogen 18 mg/dL (9-20); Calcium 8.6 mg/dL (8.4-10.2); Carbon Dioxide 25 mmol/L (22-30); Chloride 97 mmol/L (98-107); Glucose 240 mg/dL (74-99); Lipase 848 U/L (23-300); Magnesium 1.5 mg/dL (1.6-2.3); Non-African American GFR(CKD) >90 (>60 ml/min/1.73 sqM); Potassium 4.6 mmol/L (3.5-5.1); Sodium 132 mmol/L (137-145); Total Bilirubin 0.6 mg/dL (0.2-1.3); Total Protein 6.7 g/dL (6.3-8.2)
[2022-09-18] MEDS ORDERED: HYDROmorphone 0.5 MG/0.5 ML SYRINGE IVP STA (04:52)
--- NOTE | 2022-09-18 04:57 | ED ---
Arrhythmia/Palpitations HPI <Afshan Mckinney - Last Filed: 09/18/22 07:41> - General Source: patient Mode of arrival: ambulatory <Corinna Redmond - Last Filed: 09/20/22 10:05> - General Chief Complaint: Arrhythmia/Palpitations Stated Complaint: ABD Pain and chestpain Time Seen by Provider: 09/18/22 02:24 - History of Present Illness Initial Comments: Patient is a 42-year-old male presents to the emergency department for abdominal pain. Patient reports pain in his middle upper abdomen for the past 2 days which radiates into his chest and middle back. He thought it was acid reflux however the pain did not improve. No alleviating, precipitating, or exacerbating factors. He also reports intermittent palpitations which he states is chronic. He denies shortness of breath, nausea, vomiting, sweating. Denies fever, chills, diarrhea, constipation. Denies alcohol use. No new medications. Denies history of pancreatitis. He does have history of hypertension, hyperlipidemia, GERD, diabetes. No history of arrhythmia or syncope. He is a nonsmoker. (Corinna Redmond) - Related Data Home Medications Medication Instructions Recorded Confirmed lisinopriL [Zestril] 40 mg PO DAILY 03/07/18 09/18/22 Ergocalciferol (Vitamin D2) 1,250 mcg PO KRUEGER 04/07/22 09/18/22 [Drisdol (50,000 Iu)] Fenofibrate Nanocrystallized 145 mg PO DAILY 04/07/22 09/18/22 [Fenofibrate] Pioglitazone [Actos] 15 mg PO AC-BID 04/07/22 09/18/22 Rosuvastatin [Crestor] 20 mg PO DAILY 04/07/22 09/18/22 Finerenone [Kerendia] 10 mg PO DAILY 09/18/22 09/18/22 Lisinopril-Hctz 20-12.5 mg 1 tab PO DAILY 09/18/22 09/18/22 [Zestoretic 20-12.5] Omeprazole [PriLOSEC] 40 mg PO DAILY 09/18/22 09/18/22 Previous Rx's Medication Instructions Recorded Insulin Detemir (Levemir) [Levemir] 40 unit SQ DAILY@0700 each 05/02/23 Melatonin 3 mg PO HS PRN tab 09/19/22 Allergies Allergy/AdvReac Type Severity Reaction Status Date / Time metformin AdvReac Abdominal Verified 09/18/22 08:05 Pain Review of Systems ROS Other: All systems not noted in ROS Statement are negative. <Afshan Mckinney Irais - Last Filed: 09/18/22 07:41> ROS Other: All systems not noted in ROS Statement are negative. <Corinna Redmond - Last Filed: 09/20/22 10:05> ROS Statement: Those systems with pertinent positive or pertinent negative responses have been documented in the HPI. Past Medical History Past Medical History: Diabetes Mellitus, GERD/Reflux, Hyperlipidemia, Hyp ertension Additional Past Medical History / Comment(s): Hx heart murmur History of Any Multi-Drug Resistant Organisms: None Reported Past Surgical History: Cholecystectomy, Hernia Repair, Orthopedic Surgery Additional Past Surgical History / Comment(s): Lump removed from neck. Lt shoulder SX, hiatal hernia surgery 2018 and 2022 Past Anesthesia/Blood Transfusion Reactions: No Reported Reaction, Motion Sickness Past Psychological History: No Psychological Hx Reported Smoking Status: Never smoker Past Alcohol Use History: None Reported Past Drug Use History: None Reported - Past Family History Mother Family Medical History: Cancer Father Family Medical History: No Reported History <NylaCorinna - Last Filed: 09/20/22 10:05> General Exam General appearance: alert, in no apparent distress Head exam: Present: atraumatic, normocephalic, normal inspection Respiratory exam: Present: normal lung sounds bilaterally. Absent: respiratory distress, wheezes, rales, rhonchi, stridor Cardiovascular Exam: Present: regular rate, normal rhythm, normal heart sounds. Absent: systolic murmur, diastolic murmur, rubs, gallop, clicks GI/Abdominal exam: Present: soft, tenderness (epigastric ), normal bowel sounds. Absent: distended, guarding, rebound, rigid Extremities exam: Present: normal inspection, full ROM, normal capillary refill Neurological exam: Present: alert, oriented X3, CN II-XII intact Psychiatric exam: Present: normal affect, normal mood <Corinna Redmond - Last Filed: 09/20/22 10:05> Course Vital Signs 09/18/22 09/18/22 09/18/22 01:40 02:10 03:00 Temperature 98.3 F 98.1 F Pulse Rate 115 H 101 H 101 H Respiratory 23 20 19 Rate Blood Pressure 158/96 159/99 159/99 O2 Sat by Pulse 97 96 96 Oximetry 09/18/22 09/18/22 09/18/22 05:00 07:00 08:00 Temperature 97.9 F Pulse Rate 93 79 78 Respiratory 16 16 14 Rate Blood Pressure 150/84 144/87 114/66 O2 Sat by Pulse 98 97 97 Oximetry 09/18/22 09:00 Temperature Pulse Rate 87 Respiratory 14 Rate Blood Pressure 128/87 O2 Sat by Pulse 98 Oximetry Medical Decision Making - Lab Data Result diagrams: 09/18/22 02:26 09/18/22 03:15 <Afshan Mckinney - Last Filed: 09/18/22 07:41> - Lab Data Result diagrams: 09/18/22 02:26 09/18/22 03:15 <Corinna Redmond - Last Filed: 09/20/22 10:05> - Medical Decision Making EKG taken at 1:47, interpreted by me Sinus tachycardia, borderline left axis deviation, no ST segment or T-wave abnormality Ventricular rate 101, AK interval 156, QRS duration 101, QTC 390 Was pt. sent in by a medical professional or institution ([facility]EPA[facility] Purcell, CORE MEASURES ABSTRACTOR, urgent care, hospital, or intermediate...) When possible be specific @ -No Did you speak to anyone other than the patient for history (EMS, parent, family, police, friend...)? What history was obtained from this source @ -No Did you review nursing and triage notes (agree or disagree)? Why? @ -I reviewed and agree with nursing and triage notes Were old charts reviewed (outside hosp., previous admission, EMS record, old EKG, old radiological studies, urgent care reports/EKG's, intermediate records)? Report findings @ -No old charts were reviewed Differential Diagnosis (chest pain, altered mental status, abdominal pain women, abdominal pain men, vaginal bleeding, weakness, fever, dyspnea, syncope, he adache, dizziness, GI bleed, back pain, seizure, CVA, palpatations, mental health)? @ -Differential Abdominal Pain Men: Appendicitis, cholecystitis, diverticulosis, ischemic bowel, pancreatitis, hepatitis, UTI, gastroenteritis, AAA, incarcerated hernia, bowel obstruction, constipation, inflammatory bowel, hepatitis, peptic ulcer disease, splenic infarction, perforated viscus, testicular torsion, this is not meant to be an all-inclusive list EKG interpreted by me (3pts min.). @ -As above X-rays interpreted by me (1pt min.). @ -None done CT interpreted by me (1pt min.). @ -Yes, showing evidence of pancreatitis U/S interpreted by me (1pt. min.). @ -None done What testing was considered but not performed or refused? (CT, X-rays, U/S, labs)? Why? @ -None] What meds were considered but not given or refused? Why? @ -[None] Did you discuss the management of the patient with other professionals (professionals i.e. , PA, CORE MEASURES ABSTRACTOR, lab, RT, psych nurse, social human services assistants, composition floor layer, teacher, assistant chief nursing officer, case maker)? Give summary @ -[No] Was smoking cessation discussed for >3mins.? @ -[No] Was critical care preformed (if so, how long)? @ -[No] Were there social determinants of health that impacted care today? How? ( Homelessness, low income, unemployed, alcoholism, drug addiction, transportation, low edu. Level, literacy, decrease access to med. care, [facility], rehab)? @ -[No] Was there de-escalation of care discussed even if they declined (Discuss DNR or withdrawal of care, Hospice)? DNR status @ -[No] What co-morbidities impacted this encounter? (DM, HTN, Smoking, COPD, CAD, Cancer, CVA, ARF, Chemo, Hep., AIDS, mental health diagnosis, sleep apnea, morbid obesity)? @ -[None] Was patient admitted / discharged? Hospital course, mention meds given and route, prescriptions, significant lab abnormalities, going to OR and other pertinent info. @ -Admitted. Patient presenting with acute pancreatitis. Lipase at 848. EKG shows no evidence of acute ischemia troponin is within normal limits. Will trend as patient has history of cardiac disease. Patient care given to Dr. Mckinney at 5:45 Patient admitted for further evaluation and management Undiagnosed new problem with uncertain prognosis? @ -[No] Drug Therapy requiring intensive monitoring for toxicity (Heparin, Nitro, Insulin, Cardizem)? @ -[No] Were any procedures done? @ -[No] Diagnosis/symptom? @ -pancreatitis Acute, or Chronic, or Acute on Chronic? @ -acute Uncomplicated (without systemic symptoms) or Complicated (systemic symptoms)? @ -[default] Side effects of treatment? @ -[No] Exacerbation, Progression, or Severe Exacerbation? @ -[No] Poses a threat to life or bodily function? How? (Chest pain, [place], [place], pneumonia, PE, COPD, DKA, ARF, appy, cholecystitis, CVA, Diverticulitis, Homicidal, Suicidal, threat to staff... and all critical care pts) @ -[No] Dr. Mckinney is my attending (Corinna Redmond) - Lab Data Lab Results 09/18/22 09/18/22 09/18/22 Range/Units 02:26 02:26 03:15 WBC 10.7 H (3.8-10.6) k/uL RBC 4.88 (4.30-5.90) m/uL Hgb 14.2 (13.0-17.5) gm/dL Hct 40.0 (39.0-53.0) % MCV 81.9 (80.0-100.0) fL MCH 29.0 (25.0-35.0) pg MCHC 35.4 (31.0-37.0) g/dL RDW 12.6 (11.5-15.5) % Plt Count 267 (150-450) k/uL MPV 8.3 Neutrophils % 71 % Lymphocytes % 17 % Monocytes % 8 % Eosinophils % 2 % Basophils % 0 % Neutrophils # 7.6 (1.3-7.7) k/uL Lymphocytes # 1.8 (1.0-4.8) k/uL Monocytes # 0.9 (0-1.0) k/uL Eosinophils # 0.2 (0-0.7) k/uL Basophils # 0.0 (0-0.2) k/uL PT 10.4 (9.0-12.0) sec INR 1.0 (<1.2) APTT 24.7 (22.0-30.0) sec Sodium 132 L (137-145) mmol/L Potassium 4.6 (3.5-5.1) mmol/L Chloride 97 L (98-107) mmol/L Carbon Dioxide 25 (22-30) mmol/L Anion Gap 10 mmol/L BUN 18 (9-20) mg/dL Creatinine 0.67 (0.66-1.25) mg/dL Est GFR (CKD-EPI)AfAm >90 (>60 ml/min/1.73 sqM) Est GFR (CKD-EPI)NonAf >90 (>60 ml/min/1.73 sqM) Glucose 240 H (74-99) mg/dL Calcium 8.6 (8.4-10.2) mg/dL Magnesium 1.5 L (1.6-2.3) mg/dL Total Bilirubin 0.6 (0.2-1.3) mg/dL AST 27 (17-59) U/L ALT 29 (4-49) U/L Alkaline Phosphatase 63 (38-126) U/L Troponin I (0.000-0.034) ng/mL Total Protein 6.7 (6.3-8.2) g/dL Albumin 3.9 (3.5-5.0) g/dL Lipase 848 H (23-300) U/L Urine Color Urine Appearance (Clear) Urine pH (5.0-8.0) Ur Specific [place] (1.001-1.035) Urine Protein (Negative) Urine Glucose (UA) (Negative) Urine Ketones (Negative) Urine Blood (Negative) Urine Nitrite (Negative) Urine Bilirubin (Negative) Urine Urobilinogen (<2.0) mg/dL Ur Leukocyte Esterase (Negative) 09/18/22 09/18/22 Range/Units 03:15 05:18 WBC (3.8-10.6) k/uL RBC (4.30-5.90) m/uL Hgb (13.0-17.5) gm/dL Hct (39.0-53.0) % MCV (80.0-100.0) fL MCH (25.0-35.0) pg MCHC (31.0-37.0) g/dL RDW (11.5-15.5) % Plt Count (150-450) k/uL MPV Neutrophils % % Lymphocytes % % Monocytes % % Eosinophils % % Basophils % % Neutrophils # (1.3-7.7) k/uL Lymphocytes # (1.0-4.8) k/uL Monocytes # (0-1.0) k/uL Eosinophils # (0-0.7) k/uL Basophils # (0-0.2) k/uL PT (9.0-12.0) sec INR (<1.2) APTT (22.0-30.0) sec Sodium (137-145) mmol/L Potassium (3.5-5.1) mmol/L Chloride (98-107) mmol/L Carbon Dioxide (22-30) mmol/L Anion Gap mmol/L BUN (9-20) mg/dL Creatinine (0.66-1.25) mg/dL Est GFR (CKD-EPI)AfAm (>60 ml/min/1.73 sqM) Est GFR (CKD-EPI)NonAf (>60 ml/min/1.73 sqM) Glucose (74-99) mg/dL Calcium (8.4-10.2) mg/dL Magnesium (1.6-2.3) mg/dL Total Bilirubin (0.2-1.3) mg/dL AST (17-59) U/L ALT (4-49) U/L Alkaline Phosphatase (38-126) U/L Troponin I <0.012 (0.000-0.034) ng/mL Total Protein (6.3-8.2) g/dL Albumin (3.5-5.0) g/dL Lipase (23-300) U/L Urine Color Light Yellow Urine Appearance Clear (Clear) Urine pH 6.5 (5.0-8.0) Ur Specific [place] 1.050 H (1.001-1.035) Urine Protein Trace H (Negative) Urine Glucose (UA) 4+ H (Negative) Urine Ketones 1+ H (Negative) Urine Blood Negative (Negative) Urine Nitrite Negative (Negative) Urine Bilirubin Negative (Negative) Urine Urobilinogen <2.0 (<2.0) mg/dL Ur Leukocyte Esterase Negative (Negative) Disposition Time of Disposition: 07:41 <Afshan Mckinney - Last Filed: 09/18/22 07:41> <Corinna Redmond - Last Filed: 09/20/22 10:05> Clinical Impression: Pancreatitis Disposition: ADMITTED IP TO THIS HOSP Condition: Good
[2022-09-18 05:42] LABS: Appearance,Urine Clear (Clear); Bilirubin,Urine Negative (Negative); Blood,Urine Negative (Negative); Color,Urine Light Yellow; Glucose,Urine (UA) 4+ (Negative); Ketones,Urine 1+ (Negative); Leukocyte Esterase,Urine Negative (Negative); Nitrite,Urine Negative (Negative); PH, Urine 6.5 (5.0-8.0); Protein,Urine Trace (Negative); Urobilinogen,Urine <2.0 mg/dL (<2.0)
[2022-09-18] MEDS ORDERED: HYDROmorphone 0.5 MG/0.5 ML SYRINGE IVP PRN ×2 (05:46→07:41)
[2022-09-18] MEDS ORDERED: NALOXONE 0.4 MG/ML 1 ML VIAL IV PRN (07:41)
[2022-09-18] MEDS ORDERED: ONDANSETRON 4 MG/2 ML VIAL IVP PRN (07:41)
[2022-09-18] MEDS ORDERED: DEXTROSE 50% SYRINGE 50 ML IVP PRN ×2 (09:56)
[2022-09-18] MEDS ORDERED: NON FORMULARY DRUG (Finerenone [Kerendia] 10 MG Tablet) PO SCH (10:00)
[2022-09-18 10:13] LABS: Glucose,Whole Blood 210 mg/dL (70-110)
[2022-09-18] MEDS: FENOFIBRATE 160 MG TAB PO SCH (11:25)
[2022-09-18] MEDS: SODIUM CHLORIDE 0.9% 1,000 ML IV SCH ×3 (11:25→19:47)
[2022-09-18] MEDS: PANTOPRAZOLE 40 MG TABLET PO SCH (11:26)
[2022-09-18] MEDS: ATORVASTATIN 40 MG TAB PO SCH (11:26)
[2022-09-18] MEDS: lisinopriL 20 MG TAB PO SCH (11:26)
[2022-09-18] MEDS: KETOROLAC 15 MG/ML 1 ML VIAL IVP PRN ×2 (11:27→19:39)
[2022-09-18] MEDS: INSULIN DETEMIR (LEVEMIR) 100 UNIT/ML SYR SQ SCH (11:28)
[2022-09-18] MEDS ORDERED: ACETAMINOPHEN TAB 325 MG TAB PO PRN (13:28)
[2022-09-18] MEDS ORDERED: CALCIUM CARBONATE 500 MG CHEWABLE PO PRN (13:28)
[2022-09-18] MEDS ORDERED: LACTULOSE 20 GM/30 ML CUP PO PRN (13:28)
[2022-09-18] MEDS ORDERED: LORazepam 0.5 MG TAB PO PRN (13:28)
[2022-09-18] MEDS ORDERED: MELATONIN 3 MG TABLET PO PRN (13:28)
[2022-09-18] MEDS: INSULIN ASPART (NovoLOG) 100 UNIT/ML VIAL SQ SCH ×3 (13:38→20:42)
[2022-09-18] MEDS: KERENDIA 10 MG PO SCH (14:21)
--- NOTE | 2022-09-18 14:37 | P.HPIM ---
History of Present Illness H&P Date: 09/18/22 Chief Complaint: Abdominal pain I'm rounding for Dr. Dejan De La Fuente. This is a pleasant 42-year-old patient who follows with Dr. Dejan De La Fuente. Chronic stable medical conditions include diabetes, GERD, hypertension, hyperlipidemia, or trauma. Patient is accompanied by his . About 4 days ago patient started off with some epigastric pain. It seems to spread to the upper abdomen. She did quit him to see his family doctor and was given Prilosec was felt to be more of r eflux. Patient's abdominal pain continued to be present involving the upper abdomen. There was no nausea vomiting. No fever no chills. Patient has started noticing skipped beats and funny beats in his heart. No fever no chills. Decided to come in. Patient was able to eat during this period. Patient's was felt to have element of pancreatitis based on some elevation of lipase and some edema in the peripancreatic area and the computed tomography scan. Review of systems: GEN.: Tired EYES: None HEENT: None NECK: None RESPIRATORY: None CARDIOVASCULAR: Irregular heartbeat GASTROINTESTINAL: As above GENITOURINARY: None MUSCULOSKELETAL: None LYMPHATICS: None HEMATOLOGICAL: None PSYCHIATRY: None NEUROLOGICAL: None Past medical history to include: Diabetes, GERD, hypertension, hyperlipidemia Social history: No smoking. Drinks one beer a week. 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 . 5 children at home. No recreational drugs Physical examination: VITAL SIGNS: 97.9, 93, 16, 150/84, 98% room air GENERAL: BMI 36.3, declining but awake not in distress. EYES: Pupils equal. Conjunctiva normal. HEENT: External appearance of nose and ears normal, oral cavity grossly normal. NECK: JVD not raised; masses not palpable. HEART: First and second heart sounds are normal; no edema. LUNGS: Respiratory rate normal; clear to auscultation. ABDOMEN: Soft, some epigastric tenderness, no guarding rigidity, liver spleen not palpable, no masses palpable. PSYCH: Alert and oriented x3; mood and affect normal. MUSCULOSKELETAL:No Clubbing/cyanosis;muscles-grossly intact NEUROLOGICAL: Cranial nerves grossly intact; no facial asymmetry, power and sensation grossly intact. LYMPHATICS: No lymph nodes palpable in the axilla and neck INVESTIGATIONS, reviewed in the clinical context: White count 10.7 hemoglobin 14.2 platelets 267 sodium 132 potassium 4.6 BUN 18 creatinine 0.67 blood glucose 240 magnesia 1.5 albumin 3.9 and lipase 848 UA: Protein trace. Glucose 4+. EKG tracing personally reviewed by me-normal sinus rhythm Chest x-ray film personally reviewed by me-lungs clear Computed tomography scan abdomen and pelvis with IV contrast: Hepatic steatosis. Mild edema in the peripancreatic fat. Assessment and plan: -Acute pancreatitis. Patient had a previous cholecystectomy. Symptoms started about 4 days ago. Some improvement. No nausea vomiting. No fever no chills. The patient clear liquids today. Full liquids in the morning. -Diabetes mellitus type 2, on oral hypoglycemic. Chronically on insulin Uncontrolled with hyperglycemia Diabetic diet. Follow Accu-Cheks and sliding scale. -Obesity BMI 36.3 Weight loss measures -Nonalcoholic fatty liver disease/hepatic steatosis Follow outpatient with gastroenterology -Essential hypertension Cystoscopy 40 mg a day -Hyperlipidemia Crestor 20 mg a day -GERD Prilosec Code clear liquids today. Full liquids if tolerated in the morning. Discussed with the patient. Follow labs. Follow Accu-Cheks. Subcu Lovenox. Care was discussed with the patient and at the bedside. IV fluids Past Medical History Past Medical History: Diabetes Mellitus, GERD/Reflux, Hyperlipidemia, Hypertension Additional Past Medical History / Comment(s): Hx heart murmur History of Any Multi-Drug Resistant Organisms: None Reported Past Surgical History: Cholecystectomy, Hernia Repair, Orthopedic Surgery Additional Past Surgical History / Comment(s): Lump removed from neck. Lt shoulder SX, hiatal hernia surgery 2018 and 2022 Past Anesthesia/Blood Transfusion Reactions: No Reported Reaction, Motion Sickness Past Psychological History: No Psychological Hx Reported Smoking Status: Never smoker Past Alcohol Use History: None Reported Additional Past Alcohol Use History / Comment(s): ONCE A WEEK A BEER Past Drug Use History: None Reported - Past Family History Mother Family Medical History: Cancer Father Family Medical History: No Reported History Medications and Allergies Home Medications Medication Instructions Recorded Confirmed Type lisinopriL [Zestril] 40 mg PO DAILY 03/07/18 09/18/22 History Ergocalciferol (Vitamin D2) 1,250 mcg PO KRUEGER 04/07/22 09/18/22 History [Drisdol (50,000 Iu)] Fenofibrate Nanocrystallized 145 mg PO DAILY 04/07/22 09/18/22 History [Fenofibrate] Insulin Glargine,Hum.rec.anlog 54 units SQ DAILY 04/07/22 09/18/22 History [Lantus Solostar Pen] Pioglitazone [Actos] 15 mg PO AC-BID 04/07/22 09/18/22 History Rosuvastatin [Crestor] 20 mg PO DAILY 04/07/22 09/18/22 History Dulaglutide [Trulicity] 0.75 mg SQ FR 07/06/22 09/18/22 History Finerenone [Kerendia] 10 mg PO DAILY 09/18/22 09/18/22 History Lisinopril-Hctz 20-12.5 mg 1 tab PO DAILY 09/18/22 09/18/22 History [Zestoretic 20-12.5] Omeprazole [PriLOSEC] 40 mg PO DAILY 09/18/22 09/18/22 History Allergies Allergy/AdvReac Type Severity Reaction Status Date / Time metformin AdvReac Abdominal Verified 09/18/22 08:05 Pain Physical Exam Vitals: Vital Signs Temp Pulse Pulse Resp BP BP Pulse Ox 09/18/22 13:08 98.1 F 94 16 146/82 96 09/18/22 09:00 87 14 128/87 98 09/18/22 08:00 78 14 114/66 97 09/18/22 07:00 79 16 144/87 97 09/18/22 05:00 97.9 F 93 16 150/84 98 09/18/22 03:00 101 H 19 159/99 96 09/18/22 02:10 98.1 F 101 H 20 159/99 96 09/18/22 01:40 98.3 F 115 H 23 158/96 97 Intake and Output 09/17/22 09/18/22 09/18/22 22:59 06:59 14:59 Other: # Voids 1 Weight 92.986 kg 92.986 kg Results CBC & Chem 7: 09/18/22 02:26 09/18/22 03:15 Labs: Abnormal Lab Results - Last 24 Hours (Table) 09/18/22 09/18/22 09/18/22 Range/Units 02:26 03:15 05:18 WBC 10.7 H (3.8-10.6) k/uL Sodium 132 L (137-145) mmol/L Chloride 97 L (98-107) mmol/L Glucose 240 H (74-99) mg/dL POC Glucose (mg/dL) (70-110) mg/dL Magnesium 1.5 L (1.6-2.3) mg/dL Lipase 848 H (23-300) U/L Ur Specific [place] 1.050 H (1.001-1.035) Urine Protein Trace H (Negative) Urine Glucose (UA) 4+ H (Negative) Urine Ketones 1+ H (Negative) 09/18/22 Range/Units 10:04 WBC (3.8-10.6) k/uL Sodium (137-145) mmol/L Chloride (98-107) mmol/L Glucose (74-99) mg/dL POC Glucose (mg/dL) 210 H (70-110) mg/dL Magnesium (1.6-2.3) mg/dL Lipase (23-300) U/L Ur Specific [place] (1.001-1.035) Urine Protein (Negative) Urine Glucose (UA) (Negative) Urine Ketones (Negative) Thrombosis Risk Factor Assmnt - Choose All That Apply Any of the Below Risk Factors Present?: Yes Each Factor Represents 1 point: Age 41-60 years Other Risk Factors: No Thrombosis Risk Factor Assessment Total Risk Factor Score: 1 Thrombosis Risk Factor Assessment Level: Low Risk
[2022-09-18 17:24] LABS: Glucose,Whole Blood 127 mg/dL (70-110)
[2022-09-18 20:42] LABS: Glucose,Whole Blood 165 mg/dL (70-110)
[2022-09-19] MEDS: SODIUM CHLORIDE 0.9% 1,000 ML IV SCH ×2 (03:23→18:27)
[2022-09-19 06:02] LABS: Glucose,Whole Blood 180 mg/dL (70-110)
[2022-09-19] MEDS: INSULIN ASPART (NovoLOG) 100 UNIT/ML VIAL SQ SCH ×3 (06:10→18:27)
[2022-09-19 08:05] VITALS: RESP 18
[2022-09-19] MEDS: lisinopriL 20 MG TAB PO SCH (08:30)
[2022-09-19] MEDS: KERENDIA 10 MG PO SCH (08:30)
[2022-09-19] MEDS: FENOFIBRATE 160 MG TAB PO SCH (08:30)
[2022-09-19] MEDS: ATORVASTATIN 40 MG TAB PO SCH (08:30)
[2022-09-19] MEDS: PANTOPRAZOLE 40 MG TABLET PO SCH (08:30)
[2022-09-19] MEDS: KETOROLAC 15 MG/ML 1 ML VIAL IVP PRN (08:30)
[2022-09-19] MEDS: INSULIN DETEMIR (LEVEMIR) 100 UNIT/ML SYR SQ SCH (08:30)
[2022-09-19 10:56] LABS: Amylase 38 U/L (23-121); Lipase 56 U/L (14-60)
[2022-09-19 12:01] LABS: Glucose,Whole Blood 146 mg/dL (70-110)
[2022-09-19 14:41] VITALS: BP 146/85; PULSE 104; TEMP 97.9
[2022-09-19 17:12] LABS: Glucose,Whole Blood 146 mg/dL (70-110)
[2022-09-20] MEDS ORDERED: MAGNESIUM OXIDE 400 MG TAB PO SCH (09:00)
[2022-09-22] MEDS ORDERED: NON FORMULARY DRUG (Dulaglutide [Trulicity] 0.75 MG/0.5 ML Each) SQ SCH (09:00)
== END 2022-09-19 20:02 | disposition home or self-care (01) ==
LOC: EC 01:38 → 6NMEDSUR 07:41
PROVIDERS: ADMIT Family Medicine; ATTEND Family Medicine
DX: K85.90 Acute pancreatitis without necrosis or infection, unspecified (principal); I10 Essential (primary) hypertension; K21.9 Gastro-esophageal reflux disease without esophagitis; E78.5 Hyperlipidemia, unspecified; E11.9 Type 2 diabetes mellitus without complications; K76.0 Fatty (change of) liver, not elsewhere classified; E66.9 Obesity, unspecified; Z68.36 Body mass index [BMI] 36.0-36.9, adult; Z90.49 Acquired absence of other specified parts of digestive tract; Z79.899 Other long term (current) drug therapy; Z79.84 Long term (current) use of oral hypoglycemic drugs; Z79.4 Long term (current) use of insulin
CPT/HCPCS: 96361 ×2; 96372 ×2; 96376 ×3; 96374; 96375; 99285; 36415; 93005; 80053; 82150; 83690 ×2; 83735; 84484; 85025; 85610; 85730; 81003; 71046; 74177; G0378 ×2; J1885 ×2; C9113; J1170; Q9967

== ENCOUNTER → 2022-12-14 | Outpatient (CLI) | payer OTHER ==
[2022-12-14 18:41] LABS: ALT 45 U/L (10-49); AST 32 U/L (14-35); Albumin 5.1 d/dL (3.8-4.9); Albumin/Globulin Ratio 1.82 Ratio (1.60-3.17); Alkaline Phosphatase 59 U/L (41-126); BUN/Creat Ratio 14.64 Ratio (12.00-20.00); Blood Urea Nitrogen 16.1 mg/dL (9.0-27.0); Calcium 10.9 mg/dL (8.7-10.3); Carbon Dioxide 23.4 mmol/L (21.6-31.8); Chloride 95 mmol/L (96-109); Globulin 2.8 d/dL (1.6-3.3); Glucose 331 mg/dL (70-110); Potassium 4.5 mmol/L (3.5-5.5); Sodium 134 mmol/L (135-145); Total Bilirubin 0.3 mg/dL (0.3-1.2); Total Protein 7.9 d/dL (6.2-8.2)
[2022-12-14 23:28] LABS: Microalbumin Creatinine Ratio <26 mg/g Cr (0-30)
== END | disposition home or self-care (01) ==
LOC: LABWHC1 10:02
PROVIDERS: ATTEND Family Medicine
DX: I10 Essential (primary) hypertension (principal); E11.9 Type 2 diabetes mellitus without complications
CPT/HCPCS: 36415; 80053; 82043; 82570; 83036; 84403

== ENCOUNTER 2023-01-13 16:10 | Emergency (ER) | payer OTHER ==
[2023-01-13] MEDS ORDERED: METOCLOPRAMIDE 5 MG/ML 2 ML VIAL IVP STA (16:58)
[2023-01-13] MEDS ORDERED: ONDANSETRON 4 MG/2 ML VIAL IVP STA (16:58)
[2023-01-13] MEDS ORDERED: SODIUM CHLORIDE 0.9% 1,000 ML IV STA (16:58)
[2023-01-13] MEDS ORDERED: methylPREDNISolone SOD SUCCI 125 MG/2 ML VIAL IV STA (17:02)
[2023-01-13] MEDS ORDERED: diphenhydrAMINE 50 MG/ML 1 ML VIAL IVP STA (17:02)
[2023-01-13] MEDS ORDERED: DEXAMETHASONE SOD PHOSPHATE 10 MG/ML 1 ML VIAL IVP STA (17:03)
[2023-01-13] MEDS ORDERED: LIDOCAINE 5% PATCH TOPICAL STA (17:08)
--- NOTE | 2023-01-13 18:13 | CT ---
EXAMINATION TYPE: CT brain pavan elliott con DATE OF EXAM: 01/13/2023 COMPARISON: None HISTORY: 42-year-old male headache, pain CT DLP: 1437.6 mGycm Automated exposure control for dose reduction was used. Technique: Examination of the head was done in axial plane without intravenous contrast. Coronal and sagittal reconstructions performed. CT of the cervical spine was obtained in axial plane without intravenous injection of contrast mater ial. Coronal and sagittal reformatted images were obtained from the axial views for evaluation of f ractures, spinal alignment and canal. FINDINGS: Head: There is no evidence of acute intracranial hemorrhage, acute ischemic changes, mass, mass-effect, or extra-axial fluid collection. There is no effacement of cerebral sulci or basal subarachnoid cister ns. There is no hydrocephalus. There is no midline shift. Hutson-white matter distinction is preserv ed. Leftward nasal septal deviation. Paranasal sinuses and mastoid air cells are well pneumatized. Orbits and globes are intact. Cervical spine: The alignment of the cervical spine is normal on coronal and reformatted images. There is no cranial vertebral abnormality. Fracture of the cervical spine is not seen. Mild spondylotic change scattered throughout. There is no evident central spinal canal stenosis. Assessment of the spinal canal from C6 and below is limited due to artifact from patient's shoulders. Sagittal and coronal reformatted images confirm above findings. COMBINED IMPRESSION: 1. No acute intracranial abnormality seen. 2. No acute fracture or malalignment of the cervical spine.
[2023-01-13 18:43] VITALS: TEMP 98.7
[2023-01-13 19:26] VITALS: BP 138/83; PULSE 79; RESP 18
--- NOTE | 2023-01-13 19:34 | ED ---
General Adult HPI - General Chief complaint: Neck Pain/Injury Stated complaint: RT SIDE MIGRAINE Time Seen by Provider: 01/13/23 16:53 Source: patient Mode of arrival: ambulatory Limitations: no limitations - History of Present Illness Initial comments: Patient is a 42-year-old male who presents to the emergency department for headache. Patient was playing basketball on Sunday and jumped to grab the ball. Patient woke up on the ground. His children said he did a half flip but patient doesn't remember. Patient does not know if he lost consciousness. He is not on blood thinners. Patient has had consistent pain in the right side of his head and neck. There is some improvement with Tylenol and Motrin however headache returns. Patient also reports some tingling in his right face. He denies double vision, blurry vision, focal weakness. - Related Data Home Medications Medication Instructions Recorded Confirmed Ergocalciferol (Vitamin D2) 1,250 mcg PO KRUEGER 04/07/22 01/13/23 [Drisdol (50,000 Iu)] Fenofibrate Nanocrystallized 145 mg PO DAILY 04/07/22 01/13/23 [Fenofibrate] Pioglitazone [Actos] 15 mg PO AC-BID 04/07/22 01/13/23 Rosuvastatin [Crestor] 20 mg PO DAILY 04/07/22 01/13/23 Finerenone [Kerendia] 10 mg PO DAILY 09/18/22 01/13/23 Lisinopril-Hctz 20-12.5 mg 1 tab PO BID 09/18/22 01/13/23 [Zestoretic 20-12.5] Omeprazole [PriLOSEC] 40 mg PO DAILY 09/18/22 01/13/23 Budesonide/Formoterol Fumarate 2 puff INHALATION RT-BID PRN 01/13/23 01/13/23 [Symbicort 80-4.5 Mcg Inhaler] Insulin Detemir (Levemir) [Levemir] 44 unit SQ DAILY@0700 01/13/23 01/13/23 Testosterone Cypionate 200 mg IM Q14D 01/13/23 01/13/23 [Depo-Testosterone] Previous Rx's Medication Instructions Recorded Melatonin 3 mg PO HS PRN tab 09/19/22 Ibuprofen [Motrin] 800 mg PO Q6H PRN #30 tab 01/13/23 Lidocaine 5% Patch [Lidoderm 5% 1 patch TOPICAL DAILY PRN #7 patch 01/13/23 Patch] Allergies Allergy/AdvReac Type Severity Reaction Status Date / Time metformin AdvReac Abdominal Verified 01/13/23 19:43 Pain Review of Systems ROS Statement: Those systems with pertinent positive or pertinent negative responses have been documented in the HPI. ROS Other: All systems not noted in ROS Statement are negative. Past Medical History Past Medical History: Diabetes Mellitus, GERD/Reflux, Hyperlipidemia, Hypertension Additional Past Medical History / Comment(s): Hx heart murmur History of Any Multi-Drug Resistant Organisms: None Reported Past Surgical History: Cholecystectomy, Hernia Repair, Orthopedic Surgery Additional Past Surgical History / Comment(s): Lump removed from neck. Lt shoulder SX, hiatal hernia surgery 2018 and 2022 Past Anesthesia/Blood Transfusion Reactions: No Reported Reaction, Motion Sickness Past Psychological History: No Psychological Hx Reported Smoking Status: Never smoker Past Alcohol Use History: None Reported Past Drug Use History: None Reported - Past Family History Mother Family Medical History: Cancer Father Family Medical History: No Reported History General Exam Limitations: no limitations General appearance: alert Eye exam: Present: normal appearance, PERRL, EOMI. Absent: scleral icterus, conjunctival injection, periorbital swelling Neck exam: Present: normal inspection, tenderness (Right sternocleidomastoid). Absent: meningismus, lymphadenopathy Respiratory exam: Present: normal lung sounds bilaterally. Absent: respiratory distress, wheezes, rales, rhonchi, stridor Cardiovascular Exam: Present: regular rate, normal rhythm, normal heart sounds. Absent: systolic murmur, diastolic murmur, rubs, gallop, clicks Neurological exam: Present: alert Expanded Cranial nerves: EOM's Intact: Normal, Facial Sensation: Normal, Facial Palsy with Forehead Movement: Normal, Facial Palsy without Forehead Movement: Normal Sensory exam: Upper Extremity Light Touch: Normal, Lower Extremity Light Touch: Normal Motor strength exam: RUE: 5, LUE: 5, RLE: 5, LLE: 5 Psychiatric exam: Present: normal affect, normal mood Skin exam: Present: warm, dry, intact, normal color. Absent: rash Course Vital Signs 01/13/23 01/13/23 01/13/23 16:11 16:35 18:43 Temperature 96.6 F L 99.4 F 98.7 F Pulse Rate 103 H 100 94 Respiratory 18 16 17 Rate Blood Pressure 149/89 164/94 136/86 O2 Sat by Pulse 97 95 97 Oximetry 01/13/23 19:25 Temperature Pulse Rate 79 Respiratory 18 Rate Blood Pressure 138/83 O2 Sat by Pulse 95 Oximetry Medical Decision Making - Medical Decision Making Was pt. sent in by a medical professional or institution (, PA, MACHINE STONE POLISHER, urgent care, hospital, or snf...) When possible be specific @ -No Did you speak to anyone other than the patient for history (EMS, parent, family, police, friend...)? What history was obtained from this source @ -No Did you review nursing and triage notes (agree or disagree)? Why? @ -I reviewed and agree with nursing and triage notes Were old charts reviewed (outside hosp., previous admission, EMS record, old EKG, old radiological studies, urgent care reports/EKG's, snf records)? Report findings @ -No old charts were reviewed Differential Diagnosis (chest pain, altered mental status, abdominal pain women, abdominal pain men, vaginal bleeding, weakness, fever, dyspnea, syncope, headache, dizziness, GI bleed, back pain, seizure, CVA, palpatations, mental health)? @ -Differential Headache: Migraine, tension, cluster, carbon monoxide, central venous thrombosis, pension karma temporal arteritis, acute closure glaucoma, intercranial hemorrhage, mastoiditis, sinusitis, head injury, this is not meant to be an all-inclusive list. EKG interpreted by me (3pts min.). @ -As above X-rays interpreted by me (1pt min.). @ -None done CT interpreted by me (1pt min.). @No acute intracranial process. No fracture or dislocation of the cervical spine U/S interpreted by me (1pt. min.). @ -None done What testing was considered but not performed or refused? (CT, X-rays, U/S, labs)? Why? @ -None What meds were considered but not given or refused? Why? @ -None Did you discuss the management of the patient with other professionals (professionals i.e. , PA, MACHINE STONE POLISHER, lab, RT, psych nurse, nephrology social worker, benzene operator, teacher, hydrographical technical officer, telephonic case manager)? Give summary @ -No Was smoking cessation discussed for >3mins.? @ -No Was critical care preformed (if so, how long)? @ -No Were there social determinants of health that impacted care today? How? (Homelessness, low income, unemployed, alcoholism, drug addiction, transportation, low edu. Level, literacy, decrease access to med. care, fpc, rehab)? @ -No Was there de-escalation of care discussed even if they declined (Discuss DNR or withdrawal of care, Hospice)? DNR status @ -No What co-morbidities impacted this encounter? (DM, HTN, Smoking, COPD, CAD, Cance r, CVA, ARF, Chemo, Hep., AIDS, mental health diagnosis, sleep apnea, morbid obesity)? @ -None Was patient admitted / discharged? Hospital course, mention meds given and route, prescriptions, significant lab abnormalities, going to OR and other pertinent info. @ -Patient presenting for migraine headache after fall 4 days ago. GCS 15. No neurological deficit. I did obtain a CT of the brain and C-spine due to persistent severe headache which was interpreted by myself showing no acute intracranial process and no fracture or dislocation of the cervical spine. Patient given migraine cocktail with improvement. I suspect patient has underlying neck strain due to fall.we discussed symptomatic care in detail. Patient stable medical condition for discharge to follow-up with his primary care provider Undiagnosed new problem with uncertain prognosis? @ -No Drug Therapy requiring intensive monitoring for toxicity (Heparin, Nitro, Insulin, Cardizem)? @ -No Were any procedures done? @ -No Diagnosis/symptom? @ -Fall, headache, neck strain Acute, or Chronic, or Acute on Chronic? @ Acute Uncomplicated (without systemic symptoms) or Complicated (systemic symptoms)? @ -uncomplicated Side effects of treatment? @ -No Exacerbation, Progression, or Severe Exacerbation? @ -No Poses a threat to life or bodily function? How? (Chest pain, [place], [place], pneumonia, PE, COPD, DKA, ARF, appy, cholecystitis, CVA, Diverticulitis, Homicidal, Suicidal, threat to staff... and all critical care pts) @ -No Dr. Barry is my attending Disposition Clinical Impression: Headache, Neck strain, Fall Disposition: HOME SELF-CARE Condition: Good Instructions (If sedation given, give patient instructions): Concussion (ED), Cervical Sprain (ED) Additional Instructions: Take medication as directed. Apply heat to neck. Please follow-up with your primary care provider in 1-2 days. Return to the emergency department if you experience new, concerning, or worsening symptoms. Prescriptions: Lidocaine 5% Patch [Lidoderm 5% Patch] 1 patch TOPICAL DAILY PRN #7 patch PRN Reason: Pain Ibuprofen [Motrin] 800 mg PO Q6H PRN #30 tab PRN Reason: Pain Is patient prescribed a controlled substance at d/c from ED?: No Referrals: Dejan De La Fuente MD [Primary Care Provider] - 1-2 days
== END 2023-01-13 19:53 | disposition home or self-care (01) ==
LOC: EC 16:10
DX: S16.1XXA Strain of muscle, fascia and tendon at neck level, initial encounter (principal); R51.9 Headache, unspecified; E11.9 Type 2 diabetes mellitus without complications; K21.9 Gastro-esophageal reflux disease without esophagitis; E78.5 Hyperlipidemia, unspecified; I10 Essential (primary) hypertension; Z79.84 Long term (current) use of oral hypoglycemic drugs; Z79.899 Other long term (current) drug therapy; Z88.8 Allergy status to other drugs, medicaments and biological substances; X58.XXXA Exposure to other specified factors, initial encounter; Y93.67 Activity, basketball
CPT/HCPCS: 72125; 70450; 99284; 96374; 96375 ×3; 96361; J1200; J1100; J2765; J2405

== ENCOUNTER 2023-08-01 03:41 | Emergency (ER) | payer BC, OTHER ==
[2023-08-01 03:47] VITALS: TEMP 98.5
[2023-08-01] MEDS: SODIUM CHLORIDE 0.9% 500 ML 500 ML IV STA (04:10)
[2023-08-01] MEDS: MORPHINE SULFATE 4 MG/ML SYRINGE IVP STA (04:12)
--- NOTE | 2023-08-01 04:20 | ED ---
General Adult HPI - General Source: patient, RN notes reviewed, old records reviewed Mode of arrival: ambulatory Limitations: no limitations <Roosevelt Sheppard - Last Filed: 08/01/23 04:16> <Afshan Mckinney - Last Filed: 08/01/23 08:09> - General Chief complaint: Urogenital Stated complaint: Abdominal Pain Time Seen by Provider: 08/01/23 03:48 - History of Present Illness Initial comments: 43-year-old male presenting with lower abdominal pain and scrotal pain. Pain has been present for the past several weeks. Initially began after lifting a heavy object at work. Patient had inguinal hernia repair approximately 1 year ago. He had been seen by his surgeon 1 week ago and was prescribed pain medication and was instructed to return if symptoms persisted. Patient woke this evening with bilateral lower abdominal pain radiating to the groin including the scrotum. He denies unilateral testicular pain. Denies dysuria or hematuria. States he has had normal bowel movements. He has nausea without vomiting. No fever. (Roosevelt Sheppard) - Related Data Home Medications Medication Instructions Recorded Confirmed Ergocalciferol (Vitamin D2) 1,250 mcg PO KRUEGER 04/07/22 01/13/23 [Drisdol (50,000 Iu)] Fenofibrate Nanocrystallized 145 mg PO DAILY 04/07/22 01/13/23 [Fenofibrate] Pioglitazone [Actos] 15 mg PO AC-BID 04/07/22 01/13/23 Rosuvastatin [Crestor] 20 mg PO DAILY 04/07/22 01/13/23 Finerenone [Kerendia] 10 mg PO DAILY 09/18/22 01/13/23 Lisinopril-Hctz 20-12.5 mg 1 tab PO BID 09/18/22 01/13/23 [Zestoretic 20-12.5] Omeprazole [PriLOSEC] 40 mg PO DAILY 09/18/22 01/13/23 Budesonide/Formoterol Fumarate 2 puff INHALATION RT-BID PRN 01/13/23 01/13/23 [Symbicort 80-4.5 Mcg Inhaler] Insulin Detemir (Levemir) [Levemir] 44 unit SQ DAILY@0700 01/13/23 01/13/23 Testosterone Cypionate 200 mg IM Q14D 01/13/23 01/13/23 [Depo-Testosterone] Previous Rx's Medication Instructions Recorded Melatonin 3 mg PO HS PRN tab 09/19/22 Ibuprofen [Motrin] 800 mg PO Q6H PRN #30 tab 01/13/23 Lidocaine 5% Patch [Lidoderm 5% 1 patch TOPICAL DAILY PRN #7 patch 01/13/23 Patch] Allergies Allergy/AdvReac Type Severity Reaction Status Date / Time metformin AdvReac Abdominal Verified 08/01/23 03:46 Pain Review of Systems ROS Other: All systems not noted in ROS Statement are negative. <Roosevelt Sheppard - Last Filed: 08/01/23 04:16> ROS Other: All systems not noted in ROS Statement are negative. <Afshan Mckinney - Last Filed: 08/01/23 08:09> ROS Statement: Those systems with pertinent positive or pertinent negative responses have been documented in the HPI. Past Medical History Past Medical History: Diabetes Mellitus, GERD/Reflux, Hyperlipidemia, Hypertension Additional Past Medical History / Comment(s): Hx heart murmur History of Any Multi-Drug Resistant Organisms: None Reported Past Surgical History: Cholecystectomy, Hernia Repair, Orthopedic Surgery Additional Past Surgical History / Comment(s): Lump removed from neck. Lt shoulder SX, hiatal hernia surgery 2018 and 2022 Past Anesthesia/Blood Transfusion Reactions: No Reported Reaction, Motion Sickness Past Psychological History: No Psychological Hx Reported Smoking Status: Never smoker Past Alcohol Use History: None Reported Past Drug Use History: None Reported - Past Family History Mother Family Medical History: Cancer Father Family Medical History: No Reported History <Roosevelt Sheppard - Last Filed: 08/01/23 04:16> General Exam Limitations: no limitations General appearance: alert, in no apparent distress Head exam: Present: atraumatic, normocephalic Eye exam: Present: normal appearance, PERRL ENT exam: Present: normal exam Neck exam: Present: normal inspection. Absent: tenderness, meningismus Respiratory exam: Present: normal lung sounds bilaterally. Absent: respiratory distress, wheezes Cardiovascular Exam: Present: regular rate, normal rhythm GI/Abdominal exam: Present: soft. Absent: distended, tenderness, guarding, rebound, rigid exam: Present: normal inspection, vertical testicular lie. Absent: testicular tenderness, scrotal swelling Extremities exam: Present: normal inspection, normal capillary refill Neurological exam: Present: alert, oriented X3, CN II-XII intact Psychiatric exam: Present: normal affect, normal mood Skin exam: Present: warm, dry, intact. Absent: cyanosis, diaphoretic <Roosevelt Sheppard - Last Filed: 08/01/23 04:16> Course Vital Signs 08/01/23 08/01/23 03:43 05:37 Temperature 98.5 F Pulse Rate 94 90 Respiratory 18 19 Rate Blood Pressure 143/82 142/90 O2 Sat by Pulse 100 96 Oximetry Medical Decision Making <Roosevelt Sheppard - Last Filed: 08/01/23 04:16> - Lab Data Result diagrams: 08/01/23 04:09 08/01/23 04:09 <CrescencioAfshan aldridge Irais - Last Filed: 08/01/23 08:09> - Medical Decision Making Was pt. sent in by a medical professional or institution (, PA, CIRCULATION MAN, urgent care, hospital, or [facility]...) When possible be specific @ -No Did you speak to anyone other than the patient for history (EMS, parent, family, police, friend...)? What history was obtained from this source @ -No Did you review nursing and triage notes (agree or disagree)? Why? @ -I reviewed and agree with nursing and triage notes Were old charts reviewed (outside hosp., previous admission, EMS record, old EKG, old radiological studies, urgent care reports/EKG's, [facility] records)? Report findings @ -No old charts were reviewed Differential Diagnosis (chest pain, altered mental status, abdominal pain women, abdominal pain men, vaginal bleeding, weakness, fever, dyspnea, syncope, headache, dizziness, GI bleed, back pain, seizure, CVA, palpatations, mental health, musculoskeletal)? @Differential Abdominal Pain Men: Appendicitis, cholecystitis, diverticulosis, ischemic bowel, pancreatitis, hepatitis, UTI, gastroenteritis, AAA, incarcerated hernia, bowel obstruction, constipation, inflammatory bowel, hepatitis, peptic ulcer disease, splenic infarction, perforated viscus, testicular torsion, this is not meant to be an all-inclusive list EKG interpreted by me (3pts min.). @ -As above X-rays interpreted by me (1pt min.). @ -None done CT interpreted by me (1pt min.). @ -None done U/S interpreted by me (1pt. min.). @ -Ultrasound scrotum pending What testing was considered but not performed or refused? (CT, X-rays, U/S, labs)? Why? @ -None What meds were considered but not given or refused? Why? @ -None Did you discuss the management of the patient with other professionals (professionals i.e. , PA, CIRCULATION MAN, lab, RT, psych nurse, director of social media marketing, wire loop machine operator, teacher, motorized squad commanding officer, caser up)? Give summary @ -No Was smoking cessation discussed for >3mins.? @ -No Was critical care preformed (if so, how long)? @ -No Were there social determinants of health that impacted care today? How? (Homelessness, low income, unemployed, alcoholism, drug addiction, transportation, low edu. Level, literacy, decrease access to med. care, group home, rehab)? @ -No Was there de-escalation of care discussed even if they declined (Discuss DNR or withdrawal of care, Hospice)? DNR status @ -No What co-morbidities impacted this encounter? (DM, HTN, Smoking, COPD, CAD, Cancer, CVA, ARF, Chemo, Hep., AIDS, mental health diagnosis, sleep apnea, morbid obesity)? @ -Diabetes, hypertension, previous inguinal hernia repair Was patient admitted / discharged? Hospital course, mention meds given and route, prescriptions, significant lab abnormalities, going to OR and other pertinent info. @ -Patient care signed out at shift change awaiting imaging. (Roosevelt Sheppard) Was patient admitted / discharged? Hospital course, mention meds given and route, prescriptions, significant lab abnormalities, going to OR and other pertinent info. @ -Patient was signed out to me pending ultrasound results. I did review the blood work, urinalysis, CAT scan and ultrasound results with the patient. No signs of testicular torsion. If patient does have bilateral hydroceles. I discussed the treatment options. Recommended tight fitting briefs. No heavy lifting. Follow-up with the urology office for further management return for any new or worsening symptoms. Patient agreeable to this and was discharged in stable condition Undiagnosed new problem with uncertain prognosis? @ -No Drug Therapy requiring intensive monitoring for toxicity (Heparin, Nitro, Insulin, Cardizem)? @ -No Were any procedures done? @ -No Diagnosis/symptom? @ -Acute testicular pain, bilateral hydroceles, history of hernia repair Acute, or Chronic, or Acute on Chronic? @ -Acute Uncomplicated (without systemic symptoms) or Complicated (systemic symptoms)? @ -Complicated Side effects of treatment? @ -No Exacerbation, Progression, or Severe Exacerbation? @ -No Poses a threat to life or bodily function? How? (Chest pain, [place], [place], pneumonia, PE, COPD, DKA, ARF, appy, cholecystitis, CVA, Diverticulitis, Homicidal, Suicidal, threat to staff... and all critical care pts) @ -No (Afshan Mckinney) - Lab Data Lab Results 08/01/23 08/01/23 08/01/23 Range/Units 04:09 04:09 04:09 WBC 5.8 (3.8-10.6) k/uL RBC 5.65 (4.30-5.90) m/uL Hgb 16.2 (13.0-17.5) gm/dL Hct 46.9 (39.0-53.0) % MCV 83.0 (80.0-100.0) fL MCH 28.7 (25.0-35.0) pg MCHC 34.6 (31.0-37.0) g/dL RDW 12.6 (11.5-15.5) % Plt Count 273 (150-450) k/uL MPV 8.4 Neutrophils % 55 % Lymphocytes % 32 % Monocytes % 7 % Eosinophils % 3 % Basophils % 1 % Neutrophils # 3.2 (1.3-7.7) k/uL Lymphocytes # 1.8 (1.0-4.8) k/uL Monocytes # 0.4 (0-1.0) k/uL Eosinophils # 0.2 (0-0.7) k/uL Basophils # 0.1 (0-0.2) k/uL PT 10.9 (10.0-12.5) sec INR 1.0 (<1.2) APTT 25.2 (22.0-30.0) sec Sodium 137 (137-145) mmol/L Potassium 3.9 (3.5-5.1) mmol/L Chloride 102 (98-107) mmol/L Carbon Dioxide 23 (22-30) mmol/L Anion Gap 12 mmol/L BUN 23 H (9-20) mg/dL Creatinine 0.74 (0.66-1.25) mg/dL Est GFR (CKD-EPI)AfAm >90 (>60 ml/min/1.73 sqM) Est GFR (CKD-EPI)NonAf >90 (>60 ml/min/1.73 sqM) Glucose 235 H (74-99) mg/dL Calcium 10.2 (8.4-10.2) mg/dL Total Bilirubin 0.6 (0.2-1.3) mg/dL AST 31 (17-59) U/L ALT 29 (4-49) U/L Alkaline Phosphatase 66 (38-126) U/L Total Protein 7.8 (6.3-8.2) g/dL Albumin 4.8 (3.5-5.0) g/dL Amylase 78 (30-110) U/L Lipase 722 H (23-300) U/L Urine Color Urine Appearance (Clear) Urine pH (5.0-8.0) Ur Specific [place] (1.001-1.035) Urine Protein (Negative) Urine Glucose (UA) (Negative) Urine Ketones (Negative) Urine Blood (Negative) Urine Nitrite (Negative) Urine Bilirubin (Negative) Urine Urobilinogen (<2.0) mg/dL Ur Leukocyte Esterase (Negative) 08/01/23 Range/Units 05:18 WBC (3.8-10.6) k/uL RBC (4.30-5.90) m/uL Hgb (13.0-17.5) gm/dL Hct (39.0-53.0) % MCV (80.0-100.0) fL MCH (25.0-35.0) pg MCHC (31.0-37.0) g/dL RDW (11.5-15.5) % Plt Count (150-450) k/uL MPV Neutrophils % % Lymphocytes % % Monocytes % % Eosinophils % % Basophils % % Neutrophils # (1.3-7.7) k/uL Lymphocytes # (1.0-4.8) k/uL Monocytes # (0-1.0) k/uL Eosinophils # (0-0.7) k/uL Basophils # (0-0.2) k/uL PT (10.0-12.5) sec INR (<1.2) APTT (22.0-30.0) sec Sodium (137-145) mmol/L Potassium (3.5-5.1) mmol/L Chloride (98-107) mmol/L Carbon Dioxide (22-30) mmol/L Anion Gap mmol/L BUN (9-20) mg/dL Creatinine (0.66-1.25) mg/dL Est GFR (CKD-EPI)AfAm (>60 ml/min/1.73 sqM) Est GFR (CKD-EPI)NonAf (>60 ml/min/1.73 sqM) Glucose (74-99) mg/dL Calcium (8.4-10.2) mg/dL Total Bilirubin (0.2-1.3) mg/dL AST (17-59) U/L ALT (4-49) U/L Alkaline Phosphatase (38-126) U/L Total Protein (6.3-8.2) g/dL Albumin (3.5-5.0) g/dL Amylase (30-110) U/L Lipase (23-300) U/L Urine Color Colorless Urine Appearance Clear (Clear) Urine pH 6.5 (5.0-8.0) Ur Specific [place] >1.050 H (1.001-1.035) Urine Protein Negative (Negative) Urine Glucose (UA) 4+ H (Negative) Urine Ketones Negative (Negative) Urine Blood Negative (Negative) Urine Nitrite Negative (Negative) Urine Bilirubin Negative (Negative) Urine Urobilinogen <2.0 (<2.0) mg/dL Ur Leukocyte Esterase Negative (Negative) Disposition <Roosevelt Sheppard - Last Filed: 08/01/23 04:16> Is patient prescribed a controlled substance at d/c from ED?: No Time of Disposition: 08:06 <Afshan Mckinney - Last Filed: 08/01/23 08:09> Clinical Impression: Hydrocele, Testicular pain Disposition: HOME SELF-CARE Condition: Stable Instructions (If sedation given, give patient instructions): Hydrocele (ED), Testicle Pain (ED) Additional Instructions: I recommend that you wear tight fitting underwear. Limit your lifting. Follow- up with the urology office and return for any new or worsening symptoms Referrals: Dejan De La Fuente MD [Primary Care Provider] - 1-2 days Sukumar Muñoz MD [STAFF PHYSICIAN] - 1-2 days
[2023-08-01 04:24] LABS: Basophils # (A) 0.1 k/uL (0-0.2); Basophils % (A) 1 %; Eosinophils # (A) 0.2 k/uL (0-0.7); Eosinophils % (A) 3 %; HCT 46.9 % (39.0-53.0); HGB 16.2 gm/dL (13.0-17.5); Lymphocytes # (A) 1.8 k/uL (1.0-4.8); Lymphocytes % (A) 32 %; MCH 28.7 pg (25.0-35.0); MCHC 34.6 g/dL (31.0-37.0); Mean Platelet Volume 8.4; Monocytes # (A) 0.4 k/uL (0-1.0); Monocytes % (A) 7 %; Neutrophils # (A) 3.2 k/uL (1.3-7.7); Neutrophils % (A) 55 %; Platelet Count 273 k/uL (150-450); RBC 5.65 m/uL (4.30-5.90); RDW 12.6 % (11.5-15.5); WBC 5.8 k/uL (3.8-10.6)
[2023-08-01 04:32] LABS: ALT 29 U/L (4-49); AST 31 U/L (17-59); African American GFR (CKD) >90 (>60 ml/min/1.73 sqM); Albumin 4.8 g/dL (3.5-5.0); Alkaline Phosphatase 66 U/L (38-126); Amylase 78 U/L (30-110); Anion Gap 12 mmol/L; Blood Urea Nitrogen 23 mg/dL (9-20); Calcium 10.2 mg/dL (8.4-10.2); Carbon Dioxide 23 mmol/L (22-30); Chloride 102 mmol/L (98-107); Glucose 235 mg/dL (74-99); Lipase 722 U/L (23-300); Non-African American GFR(CKD) >90 (>60 ml/min/1.73 sqM); Potassium 3.9 mmol/L (3.5-5.1); Sodium 137 mmol/L (137-145); Total Bilirubin 0.6 mg/dL (0.2-1.3); Total Protein 7.8 g/dL (6.3-8.2)
[2023-08-01 04:40] LABS: Partial Thromboplastin Time 25.2 sec (22.0-30.0); Prothrombin Time 10.9 sec (10.0-12.5)
[2023-08-01] MEDS: KETOROLAC 15 MG/ML 1 ML VIAL IVP STA (05:32)
[2023-08-01 05:57] LABS: Appearance,Urine Clear (Clear); Bilirubin,Urine Negative (Negative); Blood,Urine Negative (Negative); Color,Urine Colorless; Glucose,Urine (UA) 4+ (Negative); Ketones,Urine Negative (Negative); Leukocyte Esterase,Urine Negative (Negative); Nitrite,Urine Negative (Negative); PH, Urine 6.5 (5.0-8.0); Protein,Urine Negative (Negative); Urobilinogen,Urine <2.0 mg/dL (<2.0)
[2023-08-01 06:06] LABS: Specific Gravity,Urine >1.050 (1.001-1.035)
--- NOTE | 2023-08-01 06:39 | CT ---
EXAM: CT Abdomen and Pelvis With Intravenous Contrast CLINICAL HISTORY: ITS.REASON CT Reason: abdominal pain TECHNIQUE: Axial computed tomography images of the abdomen and pelvis with intravenous contrast. CTDI is 22.3 mGy and DLP is 1549.3 mGy-cm. This CT exam was performed using one or more of the following dose reduction techniques: automated exposure control, adjustment of the mA and/or kV according to patient size, and/or use of iterative reconstruction technique. COMPARISON: No relevant prior studies available. FINDINGS: Lung bases: Unremarkable. No mass. No consolidation. Mediastinum: Small esophageal hiatal hernia. ABDOMEN: Liver: Decreased hepatic attenuation index. Findings can be seen with hepatic steatosis. Gallbladder and bile ducts: Cholecystectomy changes. No ductal dilation. Pancreas: Unremarkable. No mass. No ductal dilation. Spleen: Unremarkable. No splenomegaly. Adrenals: Unremarkable. No mass. Kidneys and ureters: Unremarkable. No solid mass. No hydronephrosis. Stomach and bowel: No evidence of bowel obstruction. Colonic diverticulosis. No evidence of diverticulitis. PELVIS: Appendix: Normal appendix. Normal appendix. Bladder: Unremarkable. No mass. Reproductive: Unremarkable as visualized. ABDOMEN and PELVIS: Intraperitoneal space: Unremarkable. No free air. No significant fluid collection. Bones/joints: Degenerative changes in the spine. No acute fracture. No dislocation. Soft tissues: Umbilical hernia containing fat. Vasculature: Atherosclerotic disease. No abdominal aortic aneurysm. Lymph nodes: Unremarkable. No enlarged lymph nodes. IMPRESSION: 1. No acute findings on CT abdomen/pelvis with incidental findings as described.
--- NOTE | 2023-08-01 07:57 | US ---
EXAMINATION TYPE: US scrotum with doppler. TECHNIQUE: Grayscale and color Doppler Duplex imaging performed of the scrotum. DATE OF EXAM: 08/01/2023 COMPARISON: CT same day CLINICAL INDICATION: Male, 43 years old with history of Scrotal pain; Hx bilateral inguinal hernia x 1 year ago. No redness or swelling. Patient states left teste pain. EXAM MEASUREMENTS: TESTICLES: Right Testicle: 4.2 x 3.3 x 2.6 cm Left Testicle: 3.8 x 3.6 x 2.2 cm EPIDIDYMIS HEAD: Right Epididymis: 0.8 x 0.7 x 0.8 cm Left Epididymis: 0.9 x 0.8 x 0.9 cm Doppler performed to assess for testicular vascularity; good bilateral color flow and waveforms are s een. There is no evidence of testicular torsion. Presence of hydroceles: Trace bilateral Presence of varicoceles: No IMPRESSION: No sonographic evidence for testicular torsion or epididymoorchitis. Trace bilateral hydroceles.
[2023-08-01 08:47] VITALS: BP 137/88; PULSE 92; RESP 18
== END 2023-08-01 08:22 | disposition home or self-care (01) ==
LOC: EC 03:41
DX: N43.3 Hydrocele, unspecified (principal); E11.9 Type 2 diabetes mellitus without complications; I10 Essential (primary) hypertension; E78.5 Hyperlipidemia, unspecified; K21.9 Gastro-esophageal reflux disease without esophagitis; Z79.899 Other long term (current) drug therapy; Z88.8 Allergy status to other drugs, medicaments and biological substances; Z90.49 Acquired absence of other specified parts of digestive tract
CPT/HCPCS: 36415; 80053; 82150; 83690; 85025; 85610; 85730; 81003; 93975; 76870; 74177; 99284; 96374; 96375; J2270; J1885; Q9967

== ENCOUNTER → 2023-11-30 | Outpatient (CLI) | payer BC ==
--- NOTE | 2023-11-30 10:34 | CT ---
EXAMINATION TYPE: CT cervical spine wo con CT DLP: 505 mGycm, Automated exposure control for dose reduction was used. DATE OF EXAM: 11/30/2023 8:08 AM COMPARISON: 01/13/2023. CLINICAL INDICATION:Male, 43 years old with history of M79.12 MYALGIA OF AUXILIARY MUSCLES, HEAD AND NECK; PHH, neck pain and headaches. TECHNIQUE: Axial CT images from the skull base to the inferior aspect of T2 we obtained without intra venous contrast. Coronal and sagittal reformatted images were also reviewed. Contrast used: mL of , (if blank None) Oral contrast used: (if blank None) FINDINGS: Fracture: None. Osseous structures: Multilevel degenerative disc disease changes with endplate spurring and disc oste ophyte complex's. Vertebral alignment: Alignment within normal limits. Spinal canal/Neural Foramina: No evidence of significant spinal canal narrowing. No evidence for sign ificant neural foraminal stenosis. Neck soft tissues: Prevertebral soft tissues are within normal limits. Other: The airway is patent. The lung apices are clear. IMPRESSION: 1. No evidence of cervical spine fracture. 2. Mild multilevel degenerative disc disease. No significant neural foraminal stenosis or spinal nba l stenosis.
== END | disposition home or self-care (01) ==
LOC: RADCTMAIN 07:49
PROVIDERS: ATTEND Family Medicine
DX: M79.12 Myalgia of auxiliary muscles, head and neck (principal); M50.30 Other cervical disc degeneration, unspecified cervical region
CPT/HCPCS: 72125

== ENCOUNTER 2023-12-13 16:07 | Emergency (ER) | payer BC ==
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
--- NOTE | 2023-12-13 18:46 | CT ---
EXAMINATION TYPE: CT brain pavan elliott con DATE OF EXAM: 12/13/2023 COMPARISON: None HISTORY: Rt side neck pain. CT DLP: 1538.[address] Brain: Unenhanced CT of the brain was performed. The ventricles, basal cisterns and sulci overlying the cerebral convexities demonstrate a normal appe arance. There is no evidence for intracranial hemorrhage or sulcal effacement. No mass effects are seen. If symptoms persist consider MRI. Osseous calvarium is intact. IMPRESSION: No acute intracranial process CT Cervical Spine: Unenhanced CT of the cervical spine was performed with bone and soft tissue window settings submitted . Coronal and sagittal reconstruction is obtained. There is normal alignment and prevertebral soft tissues. I do not see evidence for fracture or sublu xation. Minimal ventral spondylosis without significant degenerative disc space narrowing. No obvious disc herniation or central stenosis. No discrete foraminal encroachment. Symptoms persist consider M RI. The lung apices are clear. IMPRESSION: No evidence for acute fracture or subluxation of the cervical spine.
[2023-12-13 19:29] VITALS: BP 123/89; PULSE 82; RESP 18; TEMP 98.2
== END 2023-12-13 19:29 | disposition home or self-care (01) ==
LOC: EC 16:07
DX: S16.1XXA Strain of muscle, fascia and tendon at neck level, initial encounter (principal); Z88.8 Allergy status to other drugs, medicaments and biological substances; Z90.49 Acquired absence of other specified parts of digestive tract; V89.2XXA Person injured in unspecified motor-vehicle accident, traffic, initial encounter; Y92.410 Unspecified street and highway as the place of occurrence of the external cause
CPT/HCPCS: 70450; 72125; 99284

== ENCOUNTER → 2024-02-08 | Outpatient (CLI) | payer BC ==
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
== END | disposition home or self-care (01) ==
LOC: RADMRIMAIN 18:03
PROVIDERS: ATTEND Family Medicine
DX: M50.123 Cervical disc disorder at C6-C7 level with radiculopathy (principal); M99.71 Connective tissue and disc stenosis of intervertebral foramina of cervical region; G44.89 Other headache syndrome
CPT/HCPCS: 70553; 72156